=== PATIENT | female | born 2000 | race Caucasian/White ===

== ENCOUNTER 2023-04-23 02:45 | Emergency (ER) | payer OTHER, SELFPAY ==
[2023-04-23] VITALS (13 sets, daily range): BP systolic 149–166; BP diastolic 91–106; PULSE 84–108; RESP 15–27; TEMP 36.7; O2SAT 98–99; BMI 26.6
--- NOTE | 2023-04-23 02:55 | ECG_ITS ---
[facility] Test Date: 2023-04-23 Pat Name: TITI ELAM Department: Room: - Gender: Female Care Team Coordinator Scheduler: : 2000 Requested By: SUJATHA GRISSOM Order Number: [id number] Reading MD: SUJATHA GRISSOM Measurements Intervals [place] Rate: 88 P: 48 ME: 126 QRS: 41 QRSD: 80 T: 21 QT: 340 QTc: 386 Interpretive Statements 1100 Sinus rhythm Non-Specific T wave inversion in III 9110 normal ECG No previous ECG available for comparison Electronically Signed On 04-28-2023 6:41:21 EST by SUJATHA GRISSOM
--- NOTE | 2023-04-23 03:08 | ED_ITS ---
HPI - Seizure General Chief Complaint: Seizure Stated Complaint: seizures Time Seen by Provider: 04/23/23 02:58 Source: patient Mode of arrival: walk-in Limitations: no limitations History of Present Illness HPI Narrative: patient states she has a seizure disorder. States diagnosed as nonepileptic type seizure. Has been on lamictal . States she did not like the side effects of fatigue with the medication. States her doctor decrease the dose from 100mg to 25mg. Complains of increased stress at work. 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 States several people have quit including the doctor and now they have a virtual doctor at the clinic and many complaints from patients. Believes she had a seizure yesterday and another one this AM. States her arms feel tingly now and this is not normal for her after a seizure. States earlier her vision was blurred but this has resolved. No headache, dizziness or difficulty walking Related Data Home Medications Medication Instructions Recorded Confirmed lamotrigine 25 mg tablet mg 04/23/23 Allergies Allergy/AdvReac Type Severity Reaction Status Date / Time hydrocortisone Allergy Verified 04/23/23 02:55 Review of Systems ROS Status of ROS 10 or more systems reviewed and unremark able except as noted in history and below PFSH PFS Social History Smoking status: Never smoker Exam Constitutional Vital Signs, click to edit/add: Last Vital Signs Temp 98.1 F 04/23/23 02:49 Pulse 90 04/23/23 03:20 Resp 19 04/23/23 03:20 BP 149/91 H 04/23/23 03:01 Pulse Ox 99 04/23/23 03:20 O2 Del Method Room Air 04/23/23 02:49 Common normals: no apparent distress, average body habitus, oriented x3, no limitations, healthy appearing, alert and well nourished Eye Common normals: PERRL, EOMs intact bilaterally and conjunctivae normal Respiratory Common normals: normal respiratory effort, no retractions, no use of accessory muscles and clear to auscultation bilaterally Cardio Common normals: regular rate, regular rhythm, S1 normal heart sound and S2 normal heart sound GI Common normals: Normal to inspection, nondistended, normoactive bowel sounds present, soft to palpation and non-tender Extremity Common normals: normal to inspection and full ROM Neuro Common normals: oriented x3, CN's II-XII intact bilaterally, moves all extremities and no focal motor deficits Psych Appearance: grossly normal Course Vital Signs Vital signs: Vital Signs Temperature 98.1 F 04/23/23 02:49 Pulse Rate 88 04/23/23 02:49 Respiratory Rate 18 04/23/23 02:49 Blood Pressure 166/100 H 04/23/23 02:49 Pulse Oximetry 98 04/23/23 02:49 Oxygen Delivery Method Room Air 04/23/23 02:49 Temperature 98.1 F 04/23/23 02:49 Pulse Rate 90 04/23/23 03:20 Respiratory Rate 19 04/23/23 03:20 Blood Pressure 149/91 H 04/23/23 03:01 Pulse Oximetry 99 04/23/23 03:20 Oxygen Delivery Method Room Air 04/23/23 02:49 MDM - Seizure MDM Narrative Medical decision making narrative: patient with history of nonepileptic seizures. Was on higher dose of lamictal that was decreased as she complained of fatigue. Is now on lamictal 25. Presented this AM after a seizure complaining of tingling of her arms and blurred vision that resolved. labs unremarkable except for hypokalemia . physical exam normal. Patient discharged home and advised to follow up with her doctor to discuss treatment of her illness Lab Data Labs: Lab Results 04/23/23 Range/Units 03:25 WBC 10.0 (4.0-11.0) 10^3/uL RBC 4.95 (4.20-5.40) 10^6/uL Hgb 14.1 (12.0-16.0) g/dL Hct 42.1 (36.0-48.0) % MCV 85.1 (81.0-99.0) fL MCH 28.5 (26.7-34.0) pg MCHC 33.5 (29.9-35.2) g/dL RDW 12.9 (11.0-15.0) % Plt Count 292 (150-450) 10^3/uL MPV 9.5 (9.5-13.5) fL Neut % (Auto) 55.1 (43.0-75.0) % Lymph % (Auto) 35.6 (20.5-60.0) % [place] % (Auto) 7.3 (1.7-12.0) % Eos % (Auto) 1.2 (0.9-7.0) % Baso % (Auto) 0.5 (0.2-2.0) % Neut # (Auto) 5.5 (1.4-6.5) 10^3/uL Lymph # (Auto) 3.6 (1.2-3.8) 10^3/uL [place] # (Auto) 0.7 (0.3-0.8) 10^3/uL Eos # (Auto) 0.1 (0.0-0.7) 10^3/uL Baso # (Auto) 0.1 (0.0-0.1) 10^3/uL Abs Immat Gran (auto) 0.03 (0.00-0.03) 10^3/uL Imm/Tot Granulo (auto) 0.3 (0.0-0.5) % Sodium 133 L (136-145) mmol/L Potassium 3.1 L (3.5-5.1) mmol/L Chloride 101 (98-107) mmol/L Carbon Dioxide 24.3 (21.0-32.0) mmol/L Anion Gap 10.8 BUN 9.0 (7.0-18.0) mg/dL Creatinine 0.89 (0.55-1.02) mg/dL Est GFR ( Amer) >60 (>=60) Est GFR (Non-Af Amer) >60 (>=60) BUN/Creatinine Ratio 10.1 Glucose 116 H (74-106) mg/dL Calcium 9.0 (8.5-10.1) mg/dL Magnesium 2.0 (1.8-2.4) mg/dL Total Bilirubin 0.2 (0.2-1.0) mg/dL AST 9 L (15-37) U/L ALT 20 (14-59) U/L Alkaline Phosphatase 66 (46-116) U/L Total Protein 7.6 (6.4-8.2) g/dL Albumin 4.0 (3.4-5.0) g/dL Globulin 3.6 g/dL Albumin/Globulin Ratio 1.1 Urine Opiates Screen Negative (NEGATIVE) Ur Buprenorphine Scrn Negative (NEGATIVE) Ur Oxycodone Screen Negative (NEGATIVE) Urine Methadone Screen Negative (NEGATIVE) Ur Barbiturates Screen Negative (NEGATIVE) U Tricyclic Antidepress Negative (NEGATIVE) Ur Phencyclidine Scrn Negative (NEGATIVE) Ur Amphetamines Screen Negative (NEGATIVE) U Methamphetamines Scrn Negative (NEGATIVE) U Benzodiazepines Scrn Negative (NEGATIVE) Urine Cocaine Screen Negative (NEGATIVE) U Cannabinoids Screen Negative (NEGATIVE) Discharge Plan Discharge Chief Complaint: Seizure Clinical Impression: Nonepileptic episode, Hypokalemia Prescriptions / Home Meds: No Action lamotrigine 25 mg tablet Instructions: Hypokalemia (ED), Nonepileptic Seizures (DC) Additional Instructions: follow up with your doctor for recheck Referrals: Physician,Non-Staff, MD [Primary Care Provider] - 1 week
[2023-04-23 03:43] LABS: Basophils Absolute Auto 0.1 10^3/uL (0.0-0.1); Basophils Percent Auto 0.5 % (0.2-2.0); Eosinophils Absolute Auto 0.1 10^3/uL (0.0-0.7); Eosinophils Percent Auto 1.2 % (0.9-7.0); Hematocrit 42.1 % (36.0-48.0); Hemoglobin 14.1 g/dL (12.0-16.0); Immature Granulocytes Abs Auto 0.03 10^3/uL (0.00-0.03); Immature Granulocytes Pct Auto 0.3 % (0.0-0.5); Lymphocytes Absolute Auto 3.6 10^3/uL (1.2-3.8); Lymphocytes Percent Auto 35.6 % (20.5-60.0); Mean Corpuscular HGB Conc 33.5 g/dL (29.9-35.2); Mean Corpuscular Hemoglobin 28.5 pg (26.7-34.0); Mean Corpuscular Volume 85.1 fL (81.0-99.0); Mean Platelet Volume 9.5 fL (9.5-13.5); Monocytes Absolute Auto 0.7 10^3/uL (0.3-0.8); Monocytes Percent Auto 7.3 % (1.7-12.0); Neutrophils Absolute Auto 5.5 10^3/uL (1.4-6.5); Neutrophils Percent Auto 55.1 % (43.0-75.0); Platelet Count 292 10^3/uL (150-450); Red Blood Count 4.95 10^6/uL (4.20-5.40); Red Cell Distribution Width 12.9 % (11.0-15.0)
[2023-04-23 03:57] LABS: Alanine Aminotransferase 20 U/L (14-59); Albumin Globulin Ratio 1.1; Alkaline Phosphatase 66 U/L (46-116); Anion Gap 10.8; Aspartate Amino Transferase 9 U/L (15-37); BUN Creatinine Ratio 10.1; Bilirubin Total 0.2 mg/dL (0.2-1.0); Carbon Dioxide 24.3 mmol/L (21.0-32.0); Chloride 101 mmol/L (98-107); Estimated GFR (African America >60 (>=60); Estimated GFR (Non-African Ame >60 (>=60); Globulin 3.6 g/dL; Glucose 116 mg/dL (74-106); Potassium 3.1 mmol/L (3.5-5.1); Sodium 133 mmol/L (136-145); Total Protein 7.6 g/dL (6.4-8.2)
[2023-04-23 03:59] LABS: Amphetamine Screen Urine NEGATIVE (NEGATIVE); Barbiturates Screen Urine NEGATIVE (NEGATIVE); Benzodiazepines Screen Urine NEGATIVE (NEGATIVE); Buprenorphine Screen Urine NEGATIVE (NEGATIVE); Cannabinoid Screen Urine NEGATIVE (NEGATIVE); Cocaine Screen Urine NEGATIVE (NEGATIVE); Methadone Screen Urine NEGATIVE (NEGATIVE); Methamphetamines Screen Urine NEGATIVE (NEGATIVE); Opiate Screen Urine NEGATIVE (NEGATIVE); Oxycodone Screen Urine NEGATIVE (NEGATIVE); Phencyclidine Screen Urine NEGATIVE (NEGATIVE); Tricyclic Antidepressant Urine NEGATIVE (NEGATIVE)
[2023-04-23] MEDS: POTASSIUM CHLORIDE 10 MEQ ER TABLET 40 MEQ PO (04:41)
== END 2023-04-23 04:48 | disposition home or self-care (01) ==
PROVIDERS: Emergency Provider Internal Medicine; PCP Family Medicine
DX: R56.9 Unspecified convulsions (principal); E87.6 Hypokalemia; Z79.899 Other long term (current) drug therapy
CPT/HCPCS: 36415; 80053; 80307; 83735; 85025; 93005; 99284

== ENCOUNTER 2023-04-25 02:25 | Emergency (ER) | payer OTHER, SELFPAY ==
[2023-04-25 02:28] VITALS: BP 133/86; PULSE 97; RESP 16; TEMP 36.6; O2SAT 99; BMI 26.6
[2023-04-25 02:39] VITALS: RESP 16
--- OUTSIDE RECORDS SUMMARY | 2023-04-25 02:58 | XMS_ITS | CCD ---
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 Name Role Phone RenFabio Unavailable Unavailable RenFabio Unavailable Unavailable KUNS, RENETTA~[phone] UNKNOWN Unavailable Unavail able NO FAMILY PHYSICIAN, 837 Unavailable Unavail able BOLIVAR CHAIREZ Unavailable Unavailable PILAR TORRE Unavailable Unavailable HAY, KATIE Unavailable Unavailable HAY, KATIE Unavailable Unavailable KUNS, REENTTA Unavailable Unavailable Kuns, Renetta Unavailable Hank Gomez Unavailable Allergies Allergy Classification Reported Allergen(s) Allergy Type Date of Onset Reaction(s) Facility (1 source) hydrOXYzine Drug Allergy [facility] Repository (7 sources) hydrOXYzine Drug Allergy rash [facility] [place] Other (7 sources) Meclizine Drug Allergy difficulty sleeping , nausea , headache [facility] [place] Other Medications Current Medications Medication Drug Class(es) Dates Sig (Normalized) Sig (Original) [id number] 200 actuat albuterol 0.09 mg/actuat metered dose inhaler (14 sources) beta2-Adrenergic Agonist Start: 02-15-2022 take 2 puff(s) by inhalation every four hours as needed Albuterol Sulfate HFA 108 (90 Base) MCG/ACT 2 puffs Inhalation every 4 hrs as needed Feb, Active Start: 02-15-2022 take 2 puff(s) by in halation every four hours as needed Albuterol Sulfate HFA 108 (90 Base) MCG/ACT 2 puffs Inhalation every 4 hrs as needed Feb, Active Start: 09-24-2017 take 2 puff(s) by in halation every four hours as needed ProAir HFA 108 (90 Base) MCG/ACT 2 puffs as needed Inhalation every 4 hrs PRN Sep, Active Albuterol Sulfat e (2.5 MG/3ML) 0.083% 3 ml Inhalation Three times a day PRN Active amoxicillin 875 mg oral tablet (1 source) Penicillin-class Antibacterial Start: 11-04-2021 take 1 tablet by mouth every twelve hours Amoxicillin 875 MG 1 tablet Orally Twice a day for 10 day(s) Oct, Active cefdinir 300 mg oral capsule (5 sources) Cephalosporin Antibacterial Start: 11-06-2021 take 1 capsule by mouth every twelve hours Cefdinir 300 MG 1 tablet Orally Twice a day for 10 days Oct, Active citalopram 10 mg oral tablet (7 sources) Serotonin Reuptake Inhibitor Start: 02-29-2020 take 1 tablet by mouth every twenty-four hours Citalopram Hydrobromide 10 MG 1 tablet Orally Once a day Feb, Active DULoxetine 20 mg delayed release oral capsule (7 sources) Serotonin and Norepinephrine Reuptake Inhibitor take 1 capsule by mouth every twelve hours DULoxetine HCl 20 MG 1 capsule Orally Twice a day Active etonogestrel 68 mg drug implant (7 sources) Progestin Nexplanon 68 MG as directed Subcutaneous Active lamoTRIgine (7 sources) Mood Stabilizer, Anti-epileptic Agent lamoTRIgine Active mupirocin 0.02 mg/mg topical ointment (1 source) RNA Synthetase Inhibitor Antibacterial Start: 08-23-2022 Mupirocin 2 % 1 application to affected area Externally Three times a day for 7 days August, Active ondansetron 4 mg oral tablet (6 sources) Serotonin-3 Receptor Antagonist Start: 11-06-2021 take 1 tablet by mouth every six hours as needed for nausea Ondansetron HCl 4 MG 1 tablet Orally Every six hours as needed for nausea Oct, Active Problems Active Problems Problem Classification Problem Date Documented Da te Episodic/Chronic Allergic reactions (7 sources) Allergy to peanut; Translations: [Allergy to peanuts] Episodic Anxiety disorders (14 sources) Panic disorder; Translations: [Panic disorder [episodic paroxysmal anxiety]] Chronic Asthma (10 sources) Unspecified asthma, uncomplicated; Translations: [Asthma] Onset: 11-11-2017 Chronic Conditions associated with dizziness or vertigo (14 sources) Labyrinthitis; Translations: [Labyrinthitis, unspecified ear] Episodic Epilepsy; convulsions (1 source) Other seizures; Translations: [OTHER SEIZURES] Onset: 11-11-2017 Chronic Epilepsy; convulsions (10 sources) Unspecified convulsions; Translations: [Seizure] Onset: 11-09-2017 Episodic Headache; including migraine (7 sources) Headache; Translations: [Headache] Episodic Nausea and vomiting (7 sources) Nausea; Translations: [Nausea] Episodic Superficial injury; contusion (1 source) Abrasion, left knee, initial encounter Episodic Syncope (14 sources) Syncope and collapse; Translations: [Syncope and collapse] Episodic Viral infection (7 sources) Verruca plantaris; Translations: [Plantar wart] Episodic Past or Other Problems Problem Classification Problem Date Documented Date Episodic/Chronic Other upper respiratory infections (1 source) Streptococcal pharyngitis Onset: 11-06-2021 Resolved: 11-06-2021 Episodic Unclassified (1 source) Acute cough R05.1 Results Test Name Value Interpretation Reference Range Facility COVID + FLU Quick Testingon 02-12-2022 SARS-CoV-2 (COVID-19) RNA ANA+probe Ql (Unsp spec) Negative [facility] [place] Other COVID + FLU Quick Testing Negative [facility] [place] Other CT head/brain wo conon 10-15 CT head/brain wo con [facility] [place] [address] CT Scan Report Signed Patient: Liliana Chavez MR#: [id number] 26 : 2000 Acct:[id number] Age/Sex: 19 / F ADM Date: 10/15/20 Loc: ER Room: Type: [facility] ER Attending Dr: Ordering Provider: Radha Khan APRN Date of Service: 10/15/20 CT/CT head/brain wo con: injury Copies to: Radha Khan APRN CT BRAIN WITHOUT CONTRAST: CLINICAL HISTORY: Seizure 4 days ago. Patient hit head. Nausea today. COMPARISON: 10/15/2017 TECHNIQUE: Contiguous axial unenhanced images were obtained through the brain. This CT exam was performed using one or more following dose reduction techniques: Automated exposure control, adjustment of the mA and/or kV according to patient size, or use of iterative reconstruction technique. FINDINGS: The ventricles are normal in size and position. There are no areas of abnormal attenuation. There is no hemorrhage, mass effect or extra-axial collections. The imaged paranasal sinuses are clear. And the calvarium is intact. CT/CT head/brain wo con IMPRESSION: NO ACUTE INTRACRANIAL ABNORMALITY. Impression dictated by: Sarah Eastman M.D.10/15/2020 2:11 PM Dictation Location: [place] [address] Transcribed By: JAYLAN 10/15/20 1411 Dictated By: Sarah Eastman MD 10/15/20 1409 Signed By: 10/15/[address] [facility] Daily Progress Note - Peds-E pilepsyon 02-14-2019 Daily Progress Note - Peds-Epilepsy Service: Service: Epilepsy Subjective Data: ID Statement: LILIANA CHAVEZ is a 18 year old Female who is Hospital Day # 2. Additional Information: Overnight Events: Patient had an uneventful night. Additional Information: Was given benadryl once for leads itching, with improvement. Nutrition: Diet: Diet Order: Diet -PEDS Regular No food allergies 02/13/2019 10:28 Objective Data: Objective Information: T PRBPSpO2 [id number]/6298% Date/Time02/14 7: 7: 7: 7: 7:39 Range(36.7C - 36.7C ) (53 - 72 ) (16 - 20 ) (105 - 105 )/ (62 - 62 ) (98% - 98% ) Physical Exam: Constitutional: Cooperative, lying in bed with mother at bedside, in no acute distress Eyes: EOMI, PERRL, anicteric sclera, no discharge ENMT: No nasal discharge or congestion, no oral lesions, MMM Head/Neck: Normocephalic, atraumatic Respiratory/Thorax: Breathing comfortably, CTA b/l Cardiovascular: RRR, S1 and S2, WWP, cap refill < 2sec, radial pulses 2+ Gastrointestinal: Soft nontender non-distended Musculoskeletal: No edema, warmth or erythema of joints Neurological: Mental Status: A&Ox3. Normal attention and concentration. Fluent spontaneous speech with no errors. Cranial Nerves: II: Visual forbes full to confrontation bilaterally. III, IV, : Extraocular movements intact with no nystagmus. Pupils equal, round and reactive to light. V: Sensation intact in all three distributions of trigeminal nerve. VII: Face symmetric. VIII: Hearing intact to finger rub bilaterally. IX, X: Palate elevates symmetrically. XII: Tongue protrudes midline. Motor: Strength 5/5 throughout. Normal bulk and tone. DTR: 1/4 b/l biceps, patellar, achilles Sensory: Intact. Coordination: Finger to nose and rapid serial opposition performed without evidence of dysmetria or dysdiadochokinesis. Psychological: appropriate for age Skin: Warm and dry, no rashes or bruising Medications: Medications: Continuous Medications --------- No continuous medications are active Scheduled Medications --------- 1. Multivitamin - PEDS: 1 tablet(s) Oral Daily PRN Medications --------- 1. Albuterol 90 micrograms/ Inhalation MDI - PEDS: 2 inhalation Inhalation Every 4 Hours 2. 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 Past EEG's have not shown epileptic activity so her episodes are non-epileptic events, likely related to anxiety/stress as the episodes have significantly decreased recently after grandmother's passing. She has not had an episode in several months where she has seemed to become unresponsive/lose consciousness so she can be cleared for driving if EEG overnight is negative. Overnight EEG was negative so patient will be discharged home today. #PNES - 24hr vEEG --> normal - seizure precautions - rescue klonopin 2mg if seizure > 5mins --> will not send home with any rescue - encourage follow up with psychiatrist/counselor JAVIERI - regular diet Maricruz Newton MD Pediatrics, PGY1 Doc [place] Signature/Cosignature/A ttestation: Note Completion: Attending AttestationI saw and evaluated the patient. I personally obtained the gauthier and critical portions of the history and physical exam or was physically present for gauthier and critical portions performed by the resident/fellow. I reviewed the resident/fellows documentation and discussed the patient with the resident/fellow. I agree with the resident/fellows medical decision making as documented in the residents note I personally evaluated the patient [id number] Comments/ Additional Findings Greater than 30 minutes spent discharging this patient. EEG normal. NO paroxysmal events recorded. Pt is cleared for driving as she has not had a seizure or episode of LOC in > 6 months. However did advise she establish with psychiatry and or a counselor for suspected panic attacks. Discussed that would be cautious driving with untreated anxiety. Advised her to discuss anxiolytic with PCP (SSRI v SNRI) pt to follow up as needed Electronic Signatures: Maricruz Newton ( (Resident)) (Signed 14-Feb-2019 12:07) Authored: Service, Subjective Data, Nutrition, Objective Data, Assessment/Plan, Signature/Cosignature/A ttestation Kaitlin Sampson (DO) (Signed 14-Feb-2019 21:18) Authored: Signature/Cosignature/A ttestation Co-Signer: Service, Subjective Data, Nutrition, Objective Data, Assessment/Plan, Signature/Cosignature/A ttestation Last Updated: 14-Feb-2019 21:18 by Kaitlin Sampson () Normal [facility] Discharge [id number] Discharge Profile2 Discharge Orders: Anticipated Discharge Date: Anticipated Discharge [id number] Problem List: Admitting Dx: Psychogenic nonepileptic seizure: Onset Date: 12-Feb-2019, Catalog Name: Conversion disorder with seizures or convulsions Hospital Providers: Provider RoleProvider Name AttendingKaitlin Sampson Activity: activity as tolerated. May shower. May return to school/work Instructions: 02/15/2019. Diet: Dietresume normal diet Additional Orders: Additional Instructions Thank you for entrusting us with Liliana's care during this hospitalization. As discussed, her EEG was normal. As a reminder, here are some precautions that we encourage anyone with seizures to follow: General Seizure Precautions: - No scuba or charan diving - No climbing trees or jumping fences - No driving until cleared by your neurologist - Always wear helmet when on a bike or in-line skates, skateboards, skis and snowboards - Always wear a life jacket when on a boat - Avoid the trampoline for now - Avoid swimming for now, unless your child can be supervised at all times and is in shallow ortega - Showering with door unlocked and someone at home Call Provider If (Homegoing Patients): Fever of 100.4 F (38 C) or higher. Chills. Acting very sleepy and difficult to awaken. Vomiting (throwing up) and not able to eat or drink for 12 hours. 3 or more loose, watery bowel movements in 24 hours (diarrhea). Any new concerning symptoms. Provider FINAL REVIEW of Orders: Final Review: Final Review of Medication Reconciliation and Orders Completedby Physician Reviewing ProviderAnna MD Lamar (Resident) at 14-Feb-2019 11:52:50 Electronic Signatures: Maricruz Newton ( (Resident)) (Signed 14-Feb-2019 11:52) Authored: Discharge Orders, Asthma Home Management Plan (HMP), Provider FINAL REVIEW of Orders, Gold Form - Siebel Administrator Summary Last Updated: 14-Feb-2019 11:52 by Maricruz Newton ( (Resident)) Normal [facility] Admission Risk Screen - Pedi atricon 02-13-2019 Admission Risk Screen - Pediatric Admission Screens: Patient Verification: New W ID Band Applied in my Departmentyes Patient Identity Verified Byparent/legal guardian ID Band FULL Name, include Middle, spelling matches patient's ID used for verificationyes ID Band Matches Patient ID used for Verficationyes ID Band MRN Matches EMR MRNyes Advance Directive: Advance Directive/DNRno Humpty Dumpty Risk Assessment: Humpty Dumpty Risk Assessment: Humpty: Age(1) 13 years and above Humpty: Gender(1) female Humpty: Diagnosis(4) neurological diagnosis Humpty: Cognitive Impairments(1) oriented to own ability Humpty: Environmental Factors(4) history of falls or infant-toddler placed in bed Humpty: Response to Surgery/ Sedation/ Anesthesia(1) more than 48 hours/none Humpty: Medication Usage(1) other medications Humpty: ScoreImage has been removed. 13 Falls Precautions per Humpty Dumpty Screening ToolHIGH RISK falls safety precautions necessary (score 12+) Humpty Dumpty Educationteaching provided Teaching ProvidedPI 729 Humpty Dumpty Falls Prevention Program For Inpatient use ONLY Family Violence Screen (Patient < 8 yo, screen parent only. Patient 8 yo and older, screen both parent and child.): Do you feel UNSAFE going back to the place where you liveno Clinician Assessment: Are there any apparent signs of injuries/behaviors that could be related to abuse/neglectno Ask parent or guardian: Are there times when you, your child(keshia), or any member of your household feel unsafe, harmed, or threatened around persons with whom you know or liveno Have you had any thoughts of harming anyone elseno Social Service Consult for abuse/neglect needed this visitno SBIRT: Does this patient present with an injuryno Functional Screen: Functional Screen: In the recent/past 2-4 weeks, patient or family have noticedno issues that require a rehabilitation consult at this time Learning Assessment (Patient): Patient is Able to be Assessed for Learningyes Educational [id number] grade Factors Influence Readiness to Learnnone, ready to learn Factors Impact Ability to Learnnone Devices/Methods Used to Communicateglasses Learning Preferencesaudio, individual instruction, skill demonstration, verbal instruction, video, written material Cultural Considerationsnone Developmental Considerationsnone Scientologist Considerationsnone Other Learnersmother Learning Assessment (Other Learner): Other learner availableyes Other Learner is Able to be Assessed for Learningyes Learnermother Factors Influencing Readiness to Learnnone, ready to learn Factors that Impact Ability to Learnnone Devices/Methods Used to Communicatenone Learning Preferencesaudio, individual instruction, skill demonstration, verbal instruction, video, written material Cultural Considerationsnone Developmental Considerationsnone Scientologist Considerationsnone Nutrition Risk Screen: Nutrition Screen forpediatric patient Nutrition Risk Screen (2 or more indicators, Order Nutrition Consult)no indicators present Nutrition Consult needed this visitno Can Patient Participate in Room Serviceyes Pain Screen: Pain Scalenumerical 0-10 Pain Scale Educationteaching provided Current Pain Level2 = Mild Acceptable Pain Level2 = Mild (1) Expression of Pain (nonverbal)verbalizatio n Lifestyle Changes/Adaptations in Response to Paindecreased activity level Barriers to Reporting Painnone Chronic Painno Chronic Pain Commenthas abdominal cramping during some of monthly periods. Video/Poke Procedure Plan: Has the Pain Evaluation and Management Video been viewed within the past 3 months: no Has the Poke and Procedure Plan been completed: N/A Pressure Injury Present on Admissionno Spiritual Screen: Are there any cultural, spiritual, sabianism practices/values/needs that are important for us to knowno Do you want a visit/item from Pastoral Careno Would you like your Chemical Processing Equipment Repairer/Antenna Rigger notifiedno [place] Suicide Peds: Screen patients 10 yo and older, or any patient presenting with a mental health issue Risk Screen Not Applicable/Able to Answerable to be screened In the Past Month: Have you wished you were or could go to sleep and not wake upno In the Past Month: Have you had any actual thoughts of killing yourselfno Lifetime: Have you ever done, started to do, or prepared to do anything to end your lifeno [place] Suicide Risknone Optional Screens: Significant Indicatiors: Significant Indicators: Complete Electronic Signatures: Yanet Powell (ARTURO) (Signed 13-Feb-2019 10:25) Authored: Admission Screens, Optional Screens Last Updated: 13-Feb-2019 10:25 by Yanet Powell (ARTURO) References: 1. Data Referenced From 3. Plan of Care 13-Feb-2019 09:51 Normal [facility] Discharge Planning Noteon Discharge Planning Note Discharge Needs Assessment: Discharge Planning Assessment [id number] Discharge Planning Assessment Completed byMiladys JENNINGSlinux systems analyst Information: Reason for Admission as Stated by Patient/Parent/Caregive rVEEG monitoring Primary Caregivermother, father Lives Withmother Patient Learning - Peds: Factors Impact Ability to Learnnone Other Learner - Peds: Learnerfamily Discharge Needs: Services Anticipated at Dischargenone Anticipated Discharge Dispositionhome Anticipated Discharge Facility/Level of Care NeedsHome Discharge Planning: Planned Disposition: home Final Disposition/Discharge: Disposition/Discharge Information: Discharge/Transfer Information: Discharge/Transfer Date/[id number] 14:44 Discharged Accompanied Byparent Discharge Modeambulatory Transportation Methodprivate car Final DispositionHome Electronic Signatures: Miladys Poole (RN) (Signed 13-Feb-2019 09:13) Authored: Discharge Planning Note Linnea Conway (MICHAELA) (Signed 14-Feb-2019 15:33) Authored: Discharge Planning Note, Final Disposition/Discharge Last Updated: 14-Feb-2019 15:33 by Linnea Conway (MICHAELA) Normal [facility] History and Physical - Pedso n 02-13-2019 History and Physical - Peds History of Present Illness: /Lactating: Are You no (1) Are You Currently Breastfeedingno (1) History of Present Illness: HPI: 18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 These episodes started 4 year ago with eyes widening and legs go numbing so that she falls to the ground. 1.5years ago those symptoms started but were followed by arms and fingers flexing, then arms twitching and then eyes close. Mom says it's as if she has passed out. These last for 1-2 minutes, sometimes she can be snapped out of it, she does not talk during it and she is unaware of the event happening. Afterwards she is lethargic. Sometimes they occur as a cluster. No associated triggers that they can recall. Before it occurs Liliana sometimes says that she can feel it because she doesn't feel right but can't describe it further. They used to occur several times a day (up to 7) but since grandmother passed 3 months ago they have decreased. Mom thinks the grandma's health (Parkinson's, dementia) was a source of anxiety for Liliana. The last episode was atypical of her episodes, it occured 2 weeks ago. She became dizzy and sweaty at school, it resolved within a few minutes and Liliana thinks it could have been a panic attack. Before that it occurred 3 months ago. Mom thinks graduating this year may also be an underlying source of anxiety for Liliana. She has never had a true seizure. Prior EEGs were normal, or captured non-epileptic events. When talked to alone, Liliana does not think she has anxiety and can't pinpoint anything specific that she is worried about. She does not like living in her grandfather's house because she feels limited in terms on independence and it doesn't feel like her space. She feels safe at home and at school. She states that school is going well, getting along with friends, denies bullying, She thinks school is boring right now because she is only taking two classes. She plans on graduating in March and then wants to be a dental hygienist. She is not in a current relationship, not sexually active, denies drugs and alcohol use. She denies feeling sad/depressed, thoughts of hurting herself or others but states she thought about hurting herself many years ago after her parents . She has tried counseling before but did not have good experiences. 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 She does not like seeing counselors. Mom did reach out to [facility] after Dr. Sampson's recommendation but they have not heard back yet. LMP: now, regular (will sometimes be late due to stress) ROS: negative except for above hx: ex-36weeker required O2 for 12hrs and phototherapy, no other complications with or delivery mhx: asthma surgical hx: T&A allergies: hydroxyzine, seasonal meds: albuterol nebulizer and inhaler social: lives upstairs with sister and mom in grandfather's house, 12th grade, honor roll Primary Care Provider: Primary Care Provider: Provider RoleProvider Name Megan Renetta Corrigan Allergies: Allergies: hydrOXYzine: Rash Medications Prior to Admission: Outpatient Meds have not been reviewed. Review of Systems: Constitutional: NEGATIVE: Fever, Weight Loss Eyes: NEGATIVE: Vision Loss/ Change Respiratory: NEGATIVE: Shortness of Breath Cardiac: NEGATIVE: Chest Pain, Syncope Gastrointestinal: NEGATIVE: Vomiting Musculoskeletal: NEGATIVE: Pain, Weakness Neurological: NEGATIVE: Headache, Seizures Psychiatric: POSITIVE: Anxiety Skin: NEGATIVE: Pain, Rash All Other Systems: All other systems reviewed and are negative Objective: Objective Information: T PRBPSpO2 [id number]/6496% Date/Time02/13 9: 16: 16: 9: 9:27 Range(36.2C - 36.2C ) (60 - 91 ) (20 - 20 ) (122 - 122 )/ (64 - 64 ) (96% - 96% ) Physical Exam: Constitutional: appears well, sitting in bed, NAD Eyes: EOMI, PERRL, anicteric sclera, no discharge ENMT: no nasal discharge or congestion, no oral lesions, MMM Head/Neck: normocephalic, atraumatic Respiratory/Thorax: breathing comfortably, CTA b/l Cardiovascular: RRR, S1 and S2, WWP, cap refill < 2sec, radial pulses 2+ Gastrointestinal: soft nontender non-distended Musculoskeletal: no edema, warmth or erythema of joints Neurological: Mental Status: A&Ox3. Normal attention and concentration. Fluent spontaneous speech with no errors. Cranial Nerves: II: Visual forbes full to confrontation bilaterally. III, IV, : Extraocular movements intact with no nystagmus. Pupils equal, round and reactive to light. V: Sensation intact in all three distributions of trigeminal nerve. VII: Face symmetric. VIII: Hearing intact to finger rub bilaterally. IX, X: Palate elevates symmetrically. XII: Tongue protrudes midline. Motor: Strength 5/5 throughout. Normal bulk and tone. DTR: 1/4 b/l biceps, patellar, achilles Sensory: Intact. Coordination: Finger to nose and rapid serial opposition performed without evidence of dysmetria or dysdiadochokinesis. 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 Past EEG's have not shown epileptic activity so her episodes are non-epileptic events, likely related to anxiety/stress as the episodes have significantly decreased recently after grandmother's passing. She has not had an episode in several months where she has seemed to become unresponsive/lose consciousness so she can be cleared for driving if EEG overnight is negative. #PNES - 24hr vEEG - seizure precautions - rescue klonopin 2mg if seizure > 5mins - encourage follow up with psychiatrist/counselor JAVIERI - regular diet Stella Guerin MD Pediatrics, PGY1 Doc [facility] Signatures/Attestation/ Certification: Note Completion: Admission Order - View OnlyCurrent Admission Order. [place] [facility] [place] Admitting Diagnosis, F41.9 Anxiety;F44.5 Psychogenic nonepileptic seizure Transfer to, [facility]: [facility] Level of Care, Med/Surg Admitting Service : Epilepsy Yi Montesinos Attending AttestationI saw and evaluated the patient. I personally obtained the gauthier and critical portions of the history and physical exam or was physically present for gauthier and critical portions performed by the resident/fellow. I reviewed the resident/fellows documentation and discussed the patient with the resident/fellow. I agree with the resident/fellows medical decision making as documented in the residents note I personally evaluated the patient [id number] Comments/ Additional Findings Liliana is an 18 yo girl with paroxysmal episodes which were reportedly captures on ambulatory EEG and reported as PNES. He has a prior normal vEEG at [facility] without events recorded. She was seen in clinic and is requesting driving clearance. She has not had typical PNES spells in > 6 months, noting those involve paresthesias of her LE, cramping of her hands ( carpopedal spasm) and reported LOC with falling to the ground. 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 She also reported a suspected panic attack at school 2 weeks ago. She denies falls or LOC with these recent episodes. admitted to screen for missed seiures and interictal changes for driving clearance. plan as above Attending Provider Inpatient Certification StatementI certify this patients need for inpatient care based on the above documentation including; the order to admit as inpatient, the anticipated length of stay, diagnosis, problem list and plan of care, and discharge plan. Electronic Signatures: Stella Guerin (Resident)) (Signed 13-Feb-2019 17:03) Authored: History of Present Illness, Primary Care Provider, Allergies, Medications Prior to Admission, Objective, Assessment/Plan, Signatures/Attestation/ Certification Kaitlin Sampson (DO) (Signed 14-Feb-2019 21:09) Authored: Review of Systems, Assessment/Plan, Signatures/Attestation/ Certification Co-Signer: History of Present Illness, Primary Care Provider, Allergies, Medications Prior to Admission, Objective, Assessment/Plan, Signatures/Attestation/ Certification Last Updated: 14-Feb-2019 21:09 by Kaitlin Sampson () References: 1. Data Referenced From Patient Profile - Pediatric v2 13-Feb-2019 09:51 Normal [facility] Measurementson 02-13-2019 Measurements Weight: Med Calc Weight (kg)63.8 kilogram(s) Electronic Signatures: Kaykay Cueva ( (Resident)) (Signed 13-Feb-2019 11:48) Authored: Weight Last Updated: 13-Feb-2019 11:48 by Kaykay Cueva ( (Resident)) Normal [facility] Patient Profile - Pediatric v2on 02-13-2019 Patient Profile - Pediatric v2 Profile: Initial Info: How to be AddressedCora(1) Parent NameJennifer(1) Spoken Language PreferredEnglish (1) Legal CustodianJennifer Scott Are you currently using the Personal Electronic Health Record or MYUHCAREno Are you interested in learning more about MYUHCARE for the management of your healthnot at this time Stated Reason for AdmissionVEEG Court Ordered Visitationno Wants Family/Rep Notified of Admissionn/a; family present Notify PCPnotify PCP Informed of Patient Vis[place] Patient Belongingsremains with patient Patient Belongings Remaining with Patientcell phone/electronics; clothing Medications Brought to Hospitalno General Health: Pediatric Weight (kg)63.75 kilogram(s)(2) Weight Methodactual (measured) Scale Typestanding Pediatric Height / Length (cm)156 centimeter(s)(2) Height Methodheight measured BMI (kg/m2)26.195 square meter Rsp Based Care: How would you (parents/caregivers) like to participate in the care of your childhelp when needed, remain at bedside What is the number one concern for you/your child during this hospitalization safety What is the most important thing we can do to support you and your child during this hospitalizationkeep us safe and informed Is there anything we need to know to best care for your childno Health Mgmt: Symptoms/Conditions Managed at Homebehavioral health; respiratory Behavioral Health Symptoms/Conditionsanxi ety Behavioral Health Managementmanaged Are You no Respiratory Symptoms/Conditionsasth ma Respiratory Managementmanaged Are You Currently Breastfeedingno Relationship/Environ: Resource/Environmental Concernsnone Primary Caregivermother [place]ticipated [place] Services Anticipated at Transitionnone Information Review: Allergies, Home Meds and Significant Events have been Reviewed and Verified with Patient/Familyyes ALLERGY, INTOLERANCE, ADVERSE EVENT: Allergies: hydrOXYzine: Drug, Rash, Active Electronic Signatures: Miladys Poole (MICHAELA) (Signed 13-Feb-2019 10:00) Authored: Profile, Additional Information Last Updated: 13-Feb-2019 10:00 by Miladys Poole (MICHAELA) References: 1. Data Referenced From Patient Profile - Pediatric v2 12-Mar-2018 18:17 2. Data Referenced From 1. Vital Signs - Peds/Infant 13-Feb-2019 09:27 Normal [facility] CBC AUTO DIFFon 11-09-2017 Basophils Auto #/vol (Bld) 0.1 103/ul Normal 0.0-0.1 [facility] Comment on above: Performed By: #### C BC ####[facility] [address] [place] [address] [id number] Sarah Basophils/100 WBC Auto (Bld) 0.6 % Normal 0.2-2.0 [facility] Comment on above: Performed By: #### C BC ####[facility] Sev[address] [place] [address] 82300Spxpxi Sarah Eosinophils Auto #/vol (Bld) 0.1 103/ul Normal 0.0-0.7 [facility] Comment on above: Performed By: #### C BC ####[facility] Ont[address] [place] [address] 23578Kjpkau Sarah Eosinophils/100 WBC Auto (Bld) 1.6 % Normal 0.9-7.0 [facility] Comment on above: Performed By: #### C BC ####[facility] [address] [place] [address] 72259Oouquo Sarah Erythrocyte distribution width Auto Ratio (RBC) 12.7 % Normal 11.0-15.0 [facility] Comment on above: Performed By: #### C BC ####[facility] Mpvfnmtx[address] [place] [address] 26735Wcemgh Sarah Hematocrit Auto Volume Fraction (Bld) 38.2 % Normal 36.0-48.0 [facility] Comment on above: Performed By: #### C BC ####[facility] [address] [place] [id number] Sarah Hemoglobin mass conc (Bld) 13.0 g/dL Normal 12.0-16.0 [facility] Comment on above: Performed By: #### C BC ####[facility] E[address]8091 [place], [place] [address]Njgejt Sarah IG # 0.03 10e3/ul Normal 0.00-0.03 [facility] Comment on above: Performed By: #### C BC ####[facility] [address] [place], [place] [id number] Sarah IG % 0.4 % Normal 0.0-0.5 [facility] Comment on above: Performed By: #### C BC ####[facility] A[address] [place], [place] [address]Gerken Sarah Lymphocytes Auto #/vol (Bld) 2.1 103/ul Normal 1.2-3.8 [facility] Comment on above: Performed By: #### C BC ####[facility] [address] [place] [address] Sarah Lymphocytes/100 WBC Auto (Bld) 25.9 % Normal 20.5-60.0 [facility] Comment on above: Performed By: #### C BC ####[facility] [address] [place], [place] [id number] Sarah MANUAL DIFF REQ NO Normal The [facility] Comment on above: Performed By: #### C BC ####[facility] Qdcbraw[address] [place], [place] [address]Gerken Sarah MCH Auto Entitic mass (RBC) 28.6 pg Normal 26.7-34.0 [facility] Comment on above: Performed By: #### C BC ####[facility] V[address] [place], [place] [address]Gerken Sarah MCHC Auto mass conc (RBC) 34.0 g/dL Normal 29.9-35.2 [facility] Comment on above: Performed By: #### C BC ####[facility] [address] [place] [address] [id number] Sarah MCV Auto Entitic volume (RBC) 84.1 fL Normal 79.1-95.6 [facility] Comment on above: Performed By: #### C BC ####[facility] Rq[address] [place] [address] 30188Jjzfwo Sarah Monocytes Auto #/vol (Bld) 0.6 103/ul Normal 0.3-0.8 [facility] Comment on above: Performed By: #### C BC ####[facility] [address] [place] [address] 20221Psnxmc Sarah Monocytes/100 WBC Auto (Bld) 7.0 % Normal 1.7-12.0 [facility] Comment on above: Performed By: #### C BC ####[facility] [address] [place] [address] 63707Gcqfls Sarah Neutrophils Auto #/vol (Bld) 5.3 103/ul Normal 1.4-6.5 [facility] Comment on above: Performed By: #### C BC ####[facility] [address] [place] [address] 30311Gnokiz Sarah Neutrophils/100 WBC Auto (Bld) 64.5 % Normal 43.0-75.0 [facility] Comment on above: Performed By: #### C BC ####[facility] [address]ps[address] [place] [address] 40460Yylayr Sarah Platelet mean volume Auto Entitic volume (Bld) 9.9 fL Normal 9.5-13.5 [facility] Comment on above: Performed By: #### C BC ####[facility] V[address]ip[address] [place] [address] 13821Bcpiiy Sarah Platelets Auto #/vol (Bld) 156 103/ul Normal 150-450 [facility] Comment on above: Result Comment: SCAN SHOWS SLIGHT PLT CLUMPING / Performed By: #### C BC ####[facility] Awrt[address] [place] [address] 50588Cpsdum Sarah RBC Auto #/vol (Bld) 4.54 106/ul Normal 3.40-5.30 [facility] Comment on above: Performed By: #### C BC ####[facility] [address] [place] [address] WBC Auto #/vol (Bld) 8.2 103/ul Normal 4.0-11.0 [facility] Comment on above: Performed By: #### C BC ####[facility] Fvximx[address] [place] [address] DRUG SCREEN RAPID (URINE)on 11-09-2017 AMP Negative Normal NEGATIVE [facility] Comment on above: Performed By: #### D RUGRPD ####[facility] [address] [place] [address] BAR Negative Normal NEGATIVE [facility] Comment on above: Performed By: #### D RUGRPD ####[facility] [address] [place] [address] BUP Negative Normal NEGATIVE [facility] Comment on above: Performed By: #### D RUGRPD ####[facility] L[address] [place] [address] BZO Negative Normal NEGATIVE [facility] Comment on above: Performed By: #### D RUGRPD ####[facility] [address] [place] [address] LYUDMILA Negative Normal NEGATIVE [facility] Comment on above: Performed By: #### D RUGRPD ####[facility] [address] [place] [address] CUT-OFFS SEE BELOW Normal [facility] Comment on above: Result Comment: AMP (Amphetamine): 500ng/mL, BAR (Barbituates): 200 ng/mL, BZO (Benzodiazepines): 150 ng/mL, BUP (Buprenorphine): 10 ng/mL, LYUDMILA (Cocaine): 150 ng/mL, mAMP (Methamphetamine): 500 ng/mL, MTD (Methadone): 200 ng/mL, OPI (Opiates): 100 ng/mL or 2000 ng/mL, OXY (Oxycodone): 100 ng/mL, PCP (Phencyclidine): 25 ng/mL, PPX (Propoxyphene): 300 ng/mL, THC (Cannabinoids): 50 ng/mL, TCA (Trycyclic Antidepressants): 300 ng/mL Performed By: #### D RUGRPD ####[facility] Pntusknbcz6288 [address] Sarah DRUG CUT HEADER DRUG CLASS TEST SYST EM CUT-OFF CONCENTRATIONS ARE FOLLOWS: Normal [facility] Comment on above: Performed By: #### D RUGRPD ####[facility] Egkkthawbh4263 [address] Sarah mAMP Negative Normal NEGATIVE [facility] Comment on above: Performed By: #### Faith RUGRPD ####[facility] [address] [place] [address] Sarah MTD Negative Normal NEGATIVE [facility] Comment on above: Performed By: #### Faith RUGRPD ####[facility] [address] [place] [address] Sarah OPI Negative Normal NEGATIVE [facility] Comment on above: Performed By: #### Faith RUGRPD ####[facility] Ahhirchaue5519 [address] Sarah OXY Negative Normal NEGATIVE [facility] Comment on above: Performed By: #### Faith RUGRPD ####[facility] [address] [place] [address] Sarah PCP Negative Normal NEGATIVE [facility] Comment on above: Performed By: #### Faith RUGRPD ####[facility] Azlfrxrnhf7298 [address] Sarah PPX Negative Normal NEGATIVE [facility] Comment on above: Performed By: #### Faith RUGRPD ####[facility] Yrwfczoltc3612 [address] Sarah TCA Negative Normal NEGATIVE [facility] Comment on above: Performed By: #### Faith RUGRPD ####[facility] [address] [place] [address] Sarah THC Negative Normal NEGATIVE [facility] Comment on above: Performed By: #### Faith HARPRPD ####[facility] [address] [place] [phone] Sarah ER URINE PROFILEon 8 BILIRUBIN Negative Normal NEGATIVE [facility] Comment on above: Performed By: #### E RUR ####[facility] [address] [place] [id number] Sarah BLOOD Negative Normal NEGATIVE [facility] Comment on above: Performed By: #### E RUR ####[facility] Mxdldwspoz1944 [address] Sarah CLARITY CLEAR Normal [facility] Comment on above: Performed By: #### E RUR ####[facility] Ujzgaewkux8644 [address] Sarah COLOR LT. YELLOW Normal YELLOW [facility] Comment on above: Performed By: #### E RUR ####[facility] [address] [place] [address] Sarah ERUAHD A micrscopic examination will be performed if indicated. Normal [facility] Comment on above: Performed By: #### E RUR ####[facility] Pgfnqitxuv9981 [address] Sarah GLUCOSE Negative Normal NEGATIVE [facility] Comment on above: Performed By: #### E RUR ####[facility] Mvfhjbsdrz6673 [address] [place] KETONES Negative Normal NEGATIVE [facility] Comment on above: Performed By: #### E RUR ####[facility] Jpuwwquksp8482 [address] [place] LEUKOCYTES Negative Normal NEGATIVE [facility] Comment on above: Performed By: #### E RUR ####[facility] Plbobelbhv4014 [address] [place] NITRITE Negative Normal NEGATIVE [facility] Comment on above: Performed By: #### E RUR ####[facility] Mhskpsdekh5842 [address] Sarah pH 5.5 Normal 5-9 [facility] Comment on above: Performed By: #### E RUR ####[facility] Pgjsekwzfb9537 [address] Sarah Protein mass conc Negative Normal [facility] Comment on above: Performed By: #### E RUR ####[facility] [address] [place] [address] Sarah SPEC GRAVITY <=1.005 Normal 1.005-<=1.02 5 [facility] Comment on above: Performed By: #### E RUR ####[facility] [address] [place] [address] Sarah UR MICRO IND NOT INDICATED Normal [facility] Comment on above: Performed By: #### E RUR ####[facility] [address] [place] [address] Sarah UROBILINOGEN 0.2 EU/dl Normal [facility] Comment on above: Performed By: #### E RUR ####[facility] [address] [place] [address] Sarah URon 11-09-2017 , QUAL Negative Normal NEGATIVE [facility] Comment on above: Performed By: #### P REGU ####[facility] [address] [place] [address] Sarah PROF CHEM 8 (BAS METB)on Anion gap 3 molar conc 15.8 mmol/L Normal [facility] Comment on above: Performed By: #### B MP ####[facility] [address] [place] [address] Sarah Calcium mass conc 9.9 mg/dL Normal 8.4-10.2 [facility] Comment on above: Performed By: #### B MP ####[facility] F[address] [place] [address] Sarah Chloride molar conc 109 mmol/L Critically high 98-107 [facility] Comment on above: Performed By: #### B MP ####[facility] [address] [place] [address] Sarah CO2 molar conc 21.0 mmol/L Critically low 22.0-30.0 [facility] Comment on above: Performed By: #### B MP ####[facility] [address] [place], [place] [address]Ccyyxs Sarah Creatinine mass conc 0.65 mg/dL Normal 0.52-1.04 [facility] Comment on above: Performed By: #### B MP ####[facility] [address] [place] [id number] Sarah Glucose mass conc 98 mg/dL Normal 74-106 [facility] Comment on above: Performed By: #### B MP ####[facility] [address] [place] 0780311Gerken Sarah Potassium molar conc 4.7 mmol/L Normal 3.4-5.0 [facility] Comment on above: Performed By: #### B MP ####[facility] [address] [place] [address]Gerken Sarah Sodium molar conc 141 mmol/L Normal 137-145 [facility] Comment on above: Performed By: #### B MP ####[facility] [address] [place] 0780311Gerken Sarah Urea nitrogen mass conc 12.0 mg/dL Normal 6.4-19.3 [facility] Comment on above: Performed By: #### B MP ####[facility] Thr[address]es[address] [place] 0780[address]Gerken Sarah Urea nitrogen/Creatinin e mass ratio 18.8 mg/mg Normal [facility] Comment on above: Performed By: #### B MP ####[facility] [address] [place] [address]80[address]Gerken Sarah AUTO DIFFon 11-04-2017 Basophils Auto #/vol (Bld) 0.05 x1000 Normal 0.00-0.20 [facility] Comment on above: Performed By: #### 1 43303, 0754617, 080827, 118984, 331929 ####[facility] [address] [place] [id number] Medical Director: Patric Monge MD Basos % 0.5 % Normal [facility] Comment on above: Performed By: #### 1 21491, 5053931, 931714, 224776, 469183 ####[facility] [address] [place] [address] Medical Director: Patric Monge MD Eos Count 0.05 x1000 Normal 0.00-0.50 [facility] Comment on above: Performed By: #### 1 83485, 9909707, 062110, 459092, 107238 ####[facility] [address] [place] [address] Medical Director: Patric Monge MD Eosinophils/100 leukocytes 0.5 % Normal [facility] Comment on above: Performed By: #### 1 02640, 6693717, 713684, 911977, 866504 ####[facility] [address] [place] [address] Medical Director: Patric Monge MD Lymphocytes 2.27 x1000 Normal 1.20-4.80 [facility] Comment on above: Performed By: #### 1 08430, 5381281, 454808, 912482, 572172 ####[facility] [address]ak[address] [place] [address] Medical Director: Patric Monge MD Lymphocytes/100 leukocytes 22.0 % Normal [facility] Comment on above: Performed By: #### 1 04522, 7034877, 274237, 861109, 369910 ####[facility] [address] [place] [address] Medical Director: Patric Monge MD Andrew Count 0.58 x1000 Normal 0.10-1.00 [facility] Comment on above: Performed By: #### 1 28350, 4304545, 919988, 256719, 632679 ####[facility] [address] [place] [address] Medical Director: Patric Monge MD Monocytes/100 leukocytes 5.6 % Normal [facility] Comment on above: Performed By: #### 1 35823, 0249616, 244295, 417319, 349831 ####[facility] Wh[address]qs[address] [place] [address] Medical Director: Patric Monge MD Neutrophils 7.38 x1000 Normal 1.40-8.80 [facility] Comment on above: Performed By: #### 1 52638, 1614673, 685257, 161373, 434646 ####[facility] [address] [place] [address] Medical Director: Ptaric Monge MD Neutrophils/100 WBC Auto (Bld) 71.4 % Normal [facility] Comment on above: Performed By: #### 1 05959, 6078966, 134720, 846699, 190965 ####[facility] [address]ec[address] [place] [address] Medical Director: Patric Monge MD COMPMETAon 11-04-2017 Albumin/Globulin Ratio 1.4 {ratio} [facility] Comment on above: Performed By: #### 1 36176, 6239398, 749574, 877725, 970793 ####[facility] [address]charj[address] [place] [address] Medical Director: Patric oMnge MD BUN/Creatinine Ratio 15.1 mg/mg [facility] Comment on above: Performed By: #### 1 43294, 2489754, 213837, 382356, 832437 ####[facility] [address] [place] [address] Medical Director: Patric Monge MD eGFR (non-black) [facility] Comment on above: Result Comment: Non GFR CalcMedical judgement is necessary to interpret GFR. The calculated GFR may not accurately reflect renal status in patients >70 years, women, acutely ill hospitalized patients and patients with acute renal failure or known renal disease. The MDRD GFR formula is valid only for adults greater than 18 years of age.Note:Creatinine clearance (not GFR) should be used for drug dosing. Performed By: #### 1 37063, 1832552, 075264, 563609, 067837 ####[facility] [address] [place] [address] Medical Director: Patric Monge MD GFR AA [facility]AL Normal [facility] Comment on above: Result Comment: Afri can Cam[place]onian GFR CalcMedical judgement is necessary to interpret GFR. The calculated GFR may not accurately reflect renal status in patients >70 years, women, acutely ill hospitalized patients and patients with acute renal failure or known renal disease. The MDRD GFR formula is valid only for adults greater than 18 years of age.Note:Creatinine clearance (not GFR) should be used for drug dosing. Performed By: #### 1 24827, 5707360, 209585, 481071, 675175 ####[facility] [address] [place] [address] Medical Director: Patric Monge MD Globulin 3.1 g/dL Normal [facility] Comment on above: Performed By: #### 1 90105, 8718090, 811807, 410279, 699904 ####[facility] [address] [place] [address] Medical Director: Patric Monge MD Osmolality 278 mOsm/kg Normal 275-295 [facility] Comment on above: Performed By: #### 1 89877, 3852849, 720715, 299510, 652564 ####[facility] [address]pxfd[address]44 [place] [address] Medical Director: Patric Monge MD Albumin 4.4 g/dL Normal 3.4-5.0 [facility] Comment on above: Performed By: #### 1 27483, 6640880, 959674, 343718, 052774 ####[facility] [address] [place], [place] [id number]) [phone] Director: Patric Mogne MD Alk Phos 51 unit/L Low 75-320 [facility] Comment on above: Performed By: #### 1 35407, 4884238, 284970, 528887, 673447 ####[facility] [address] [place] [address] Medical Director: Patric Monge MD Bilirubin (total) 0.41 mg/dL Normal 0.20-1.00 [facility] Comment on above: Performed By: #### 1 26351, 1098468, 569447, 884858, 103118 ####[facility] [address] [place] [address] Medical Director: Patric Monge MD Calcium 9.1 mg/dL Normal 8.5-10.5 [facility] Comment on above: Performed By: #### 1 44069, 0352218, 859167, 700775, 180761 ####[facility] [address] [place] [address] Medical Director: Patric Monge MD Chloride 106 mmol/L Normal 100-109 [facility] Comment on above: Performed By: #### 1 22224, 1759030, 446523, 145430, 160798 ####[facility] [address] [place] [address] Medical Director: Patric Monge MD CO2 23.0 mmol/L Normal 21.0-32.0 [facility] Comment on above: Performed By: #### 1 33777, 7169285, 374688, 458041, 456943 ####[facility] [address] [place] [address] Medical Director: Patric Monge MD Creatinine 0.7 mg/dL Normal 0.6-1.0 [facility] Comment on above: Performed By: #### 1 89221, 8112988, 757568, 811869, 951199 ####[facility] [address] [place] [address] Medical Director: Patric Monge MD Glucose mass conc 86 mg/dL Normal 72-100 [facility] Comment on above: Result Comment: Genna puncture should occur prior to sulfasalazine administration due to the potential for falsely depressed results. Venipuncture should occur prior to sulfapyridine administration due to the potential falsely elevated results.Baseline assay values before administration of sulfasalazine and sulfapyridine therapy would not be affected. Performed By: #### 1 73042, 5588962, 510414, 327330, 869980 ####[facility] [address] [place], [place] [id number]) [phone] Director: Patric Monge MD GOT 10 unit/L Low 15-37 [facility] Comment on above: Result Comment: Genna puncture should occur prior to sulfasalazine and/or sulfapyridine administration due to the potential for falsely depressed results.Baseline assay values before administration of sulfasalazine and sulfapyridine therapy would not be affected. Performed By: #### 1 22350, 0157042, 388158, 901892, 542968 ####[facility] [address] [place] [address] Medical Director: Patric Monge MD GPT 16 unit/L Normal 13-56 [facility] Comment on above: Result Comment: Genna puncture should occur prior to sulfasalazine and/or sulfapyridine administration due to the potential for falsely depressed results.Baseline assay values before administration of sulfasalazine and sulfapyridine therapy would not be affected. Performed By: #### 1 07988, 7986858, 086781, 510268, 046037 ####[facility] [address] [place], [place] [address]) [phone] Director: Patric Monge MD Potassium molar conc 3.3 mmol/L Low 3.5-5.1 [facility] Comment on above: Performed By: #### 1 91037, 4157373, 785103, 561623, 195391 ####[facility] [address] [place] [address] Medical Director: Patric Monge MD Protein 7.5 g/dL Normal 6.0-8.5 [facility] Comment on above: Performed By: #### 1 91988, 4701120, 179113, 996383, 958528 ####[facility] [address] [place] [address] Medical Director: Patric Monge MD Sodium 140 mmol/L Normal 135-145 [facility] Comment on above: Performed By: #### 1 13626, 1753999, 212061, 072351, 005891 ####[facility] [address] [place] [address] Medical Director: Patric Monge MD Urea nitrogen 10 mg/dL Normal 10-20 [facility] Comment on above: Performed By: #### 1 71089, 1706742, 351482, 722430, 564464 ####[facility] [address] [place] [address] Medical Director: Patric Monge MD ED Physician Reporton 2017 ED Physician Report Patient: LILIANA CHAVEZ Age: 16 years Sex: Female : 2000 Associated Diagnoses: None Author: BOLIVAR CHAIREZ MD History of Present Illness HISTORY OF PRESENT ILLNESS:Past medical history possible seizures recently completed a EEG at home presents for a chief complaint of seizure. Patient had as seizure like activity of shaking of her upper extremities and less proximal 5 minutes she did not have returned to baseline mental status and then had another one that lasted in total approximately 10 minutes. 4 total episode of approximately 20 minutes. Patient had a postictal state but her tongue or urinate on herself. No trauma. Per the patient that this is worse than her normal possible seizures for which she has been evaluated for. Patient has no other complaints at this time. No headache blurry vision nausea vomiting neck stiffness. No trauma. Severity is mild. No aggravating or relieving factors. Timing is one day. Course is intermittent. Context is possible seizuresED Caveat: [none]ROS *see ED CaveatGen: No fever, no chillsCV: No CP, no palpitationsResp: No SOB, no respiratory distressGI: No V/D, no abd painGU: No dysuria, no increased frequencySkin: No rash, no purulent lesionsEyes: No blurry vision, No double visionMSK: No back pain, no joint painNeuro: No IZAGUIRRE, no sensation changesPsych: No SI/HIAllergies:-Reviewe dP-See HPISocial History-No daily drinking, no IV drugsPHYSICAL EXAMGen: Alert, no acute distressSkin: Warm, no rashesHead: Normocephalic, atraumaticNeck: No midline tenderness, no nuchal rigidityEye: EOMI, PERRLA, normal conjunctivaENT: Mucous membranes moist, no pharyngeal erythemaCV: Normal rate, no rubsResp: Respirations unlabored, lungs clear to auscultationGI: Soft, non distended, no large abdominal masses, non tenderMSK: No midline back pain, no large joint effusionsNeuro: Alert and oriented, no focal neurological deficits observed, no dysmetria, no dysarthria, no dysphasia, 5 out of 5 strength in the upper and lower extremities, no visual field cuts, no pronator drift, cranial nerves grossly intact, normal gait observed, Psych: Cooperative, appropriate mood and affectDifferential Diagnosis:- Consideration is given for medication noncompliance, encephalitis, meningitis, subarachnoid hemorrhage, electrolyte abnormality, CVA, ACSMedical Decision Making:- Clinically most consistent with possible seizure. Given patient's symptoms with laboratory testing. Mother did give consent for labs however they do not want a head CT at this time. Mother will be present approximately one hour and we will discuss further. We [facility] will discuss with motherReevaluation/Conv ersations on care:- I have independently reviewed and interpreted all ordered labs/imaging available during my shift.- After extensive discussion regarding patient's evaluation I recommend transfer to either or her neurologist in [facility]. They are refusing ambulance transfer. Discussed risks and benefits of this.Patient seen and examined again and is currently electing to sign out AGAINST MEDICAL ADVICE. They are currently alert and oriented ?3, of sound judgment and decision-making capacity. Extensive conversation regarding the risks of leaving before completion of testing and treatment were explained which included multiple patients who had gone home only to in their sleep. Also discussed the concerns including infection, permanent disability, or from incomplete workup and treatment. Patient is able to verbally repeat these and explained their meaning in front of other medical staff. Despite further options including admission to the hospital they are electing to leave AGAINST MEDICAL ADVICE.These conversations were in front of other medical staff. Dx- SeizureDispo- Jean Chairez MD, MBAEastria regional medical center Medicine AttendingQuestions? Please contact my cell phone anytime. *This charting supersedes any ED resident or staff charting and was written using speech recognition software Health Status Allergies: Allergic Reactions (All)Severity Not DocumentedHydrOXYzine- No reactions were documented.. Past Medical/ Family/ Social History Medical history: No active or resolved past medical history items have been selected or recorded.. Surgical history: tonsillectomy.. Family history: No family history items have been selected or recorded.. Social history: Reviewed as documented in chart. Problem list: Active Problems (1)Asthma . Physical Examination Vital Signs Medical Decision Making Results review: I have independently viewed and interpreted all imaging and lab results available during my shift. Addendum Desiree CHAIREZ MD 11/04/2017 00:59 Normal [facility] ED Progress Noteon 8 Protein Pt arrived via squad from [facility] [place] staff member at bedside. Per staff member pt had a seizure that lasted 20 minutes, longer than normal. Per staff member pt has been having these seizures for a long time, [place] staff member states she can usually bring her back from them by talking to her. Pt presents calm/cooperative, AOx3, denies pain/sob, steady gait. Consent given by pt's mother for treatment via cell phone.Per staff member pt has been having these issues for two years, new onset twitching, memory loss with seizures. Pt was previously on various medications, not currently on medication. Per staff member pt stares and nods off, and loses blocks of time after seizures.PT RESTING COMFORTABLY TALKING WITH VISITORS AND WATCHING TV, NO SEIZURE ACTIVITY NOTED. GAVE SNACK AND PO KCL PER ORDER. AWAITING MOTHER. SPOKE WITH MOTHER AT LENGTH ABOUT TEST RESULTS AND POC. PT LIVES IN [place] AND HAS A NEUROLOGIST TO F/U WITH. PT IS SCHEDULED FOR AN MRI ON FRIDAY. PT JUST HAD AND 4 DAY PORTABLE EEG REMOVED YESTERDAY. MOTHER WILL CALL NEUROLOGIST IN AM. PT D/C'D HOME WITH S/S TO RETURN TO ED AND F/U CARE. PT A;ND MOTHER VERBALIZES UNDERSTANDING. Normal [facility] HCG QUANTon 11-04-2017 HCG, Quant <1.0 Normal [facility] Comment on above: Result Comment: 0.2- 1 weeks 5 -50 mIU/ml1 - 2 weeks 50-500 mIU/ml2 - 3 weeks 100-5,000 mIU/ml3 - 4 weeks 500-10,000 mIU/ml4 - 5 weeks 1,000-50,000 mIU/ml5 - 6 weeks 10,000-100,000 mIU/ml6 - 8 weeks 15,000-200,000 mIU/ml2 - 3 months 10,000-100,000 mIU/ml Performed By: #### 1 90166, 7870023, 506329, 010813, 655417 ####[facility] [address] [place] [address] Medical Director: Patric Monge MD HEMOon 11-04-2017 DIFF? No Normal [facility] Comment on above: Performed By: #### 1 36328, 4773077, 165103, 416841, 665603 ####[facility] [address] [place], [place] [address] Medical Director: Patric Monge MD Erythrocyte distribution width Auto Ratio (RBC) 13.4 % Normal 11.5-14.5 [facility] Comment on above: Performed By: #### 1 23874, 4186524, 140073, 397023, 293424 ####[facility] [address] [place], [place] [address] Medical Director: Patric Monge MD Erythrocytes (RBC) 4.42 x10 Normal 4.20-5.50 [facility] Comment on above: Result Comment: Note : RBC morphology is normal unless otherwise stated. Evaluation performed only if differential is requested. Performed By: #### 1 93430, 0939297, 570831, 327628, 935489 ####[facility] [address] [place], [place] [address]) [phone] Director: Patric Monge MD Hematocrit (HCT) 38.0 % Normal 36.0-46.[address] [facility] Comment on above: Performed By: #### 1 17097, 9018776, 386181, 011557, 466402 ####[facility] [address] [place] [address] Medical Director: Patric Monge MD Hemoglobin mass conc (Bld) 12.7 g/dL Normal 12.0-16.0 [facility] Comment on above: Performed By: #### 1 00695, 2120605, 505207, 253612, 461863 ####[facility] Trqoeetm28026 [place], [place] [address]) [phone] Director: Patric Monge MD MCH 28.7 pg Normal 25.0-32.0 [facility] Comment on above: Performed By: #### 1 36110, 9078099, 066343, 412111, 266319 ####[facility] [address] [place] [address] Medical Director: Patric Monge MD MCHC mass conc (RBC) 33.4 g/dL Normal 32.0-37.0 [facility] Comment on above: Performed By: #### 1 20846, 6534264, 119443, 385394, 510064 ####[facility] [address] [place] [address] Medical Director: Patric Monge MD MCV 86.0 fL Normal 80.0-100.0 [facility] Comment on above: Performed By: #### 1 65985, 1800691, 473633, 173936, 428497 ####[facility] [address]msx[address] [place] [address] Medical Director: Patric Monge MD Nucleated erythrocytes 0 /100WBC Normal [facility] Comment on above: Performed By: #### 1 81476, 5292485, 685747, 786536, 673365 ####[facility] [address] [place] [address] Medical Director: Patric Monge MD Platelet mean volume (PMV) 8.3 fL Normal 7.4-10.4 [facility] Comment on above: Performed By: #### 1 96744, 8095769, 128863, 891862, 617250 ####[facility] [address] [place] [address] Medical Director: Patric Monge MD Platelets 234 x1000 Normal 150-450 [facility] Comment on above: Performed By: #### 1 78315, 2288625, 431148, 258037, 505274 ####[facility] [address] [place] [address] Medical Director: Patric Monge MD WBC (Leukocytes) 10.3 10*3/uL Normal [facility] Comment on above: Performed By: #### 1 32360, 4693052, 708110, 034745, 716263 ####[facility] [address] [place] [address] Medical Director: Patric Monge MD WBC (Leukocytes) 10.3 x10 Normal 4.5-13.[address] [facility] Comment on above: Performed By: #### 1 95407, 7822017, 732142, 956283, 003341 ####[facility] [address]ef[address] [place] [address] Medical Director: Patric Monge MD MG LEVELon 11-04-2017 Magnesium 1.9 mg/dL Normal 1.6-2.6 [facility] Comment on above: Performed By: #### 1 59283, 5281166, 730754, 421929, 622855 ####[facility] [address]se[address]fsi[address] [place], [place] [address]) [phone] Director: Patric Monge MD UAon 11-04-2017 U MICRO Indicated Normal [facility] Comment on above: Performed By: #### 1 74449 ####[facility] [address] [place], [place] [address]) [phone] Director: Patric Monge MD Appearance, U Clear Normal [facility] Comment on above: Performed By: #### 1 81229 ####[facility] [address]demy[address] [place], [place] [address]) [phone] Director: Patric Monge MD Bilirubin, U Negative Normal Negative [facility] Comment on above: Performed By: #### 1 56072 ####[facility] [address] [place], [place] [address]) [phone] Director: Patric Monge MD Blood, U Moderate Abnormal Negative [facility] Comment on above: Performed By: #### 1 14027 ####[facility] [address]qrweuhe[address] [place], [place] [address]) [phone] Director: Patric Monge MD Color, U Straw Normal [facility] Comment on above: Performed By: #### 1 70386 ####[facility] [address]vo[address] [place], [place] [address]) [phone] Director: Patric Monge MD Glucose Qual, U Negative Normal Negative [facility] Comment on above: Performed By: #### 1 17319 ####[facility] [address]in[address] [place], [place] [address]) [phone] Director: Patric Monge MD Ketones, U Trace Abnormal Negative [facility] Comment on above: Performed By: #### 1 79629 ####[facility] Cxkgmdhw933[address] [place], [place] [address]) [phone] Director: Patric Monge MD Leukocyte Esterase, U Negative Normal Negative [facility] Comment on above: Performed By: #### 1 98965 ####[facility] [address]bt[address]ooz[address] [place], [place] [address]) [phone] Director: Patric Monge MD Nitrite, U Negative Normal Negative [facility] Comment on above: Performed By: #### 1 10064 ####[facility] [address] [place] [address] Medical Director: Patric Monge MD pH, U 6.0 Normal 4.5-8.0 [facility] Comment on above: Performed By: #### 1 45593 ####[facility] [address] [place] [address]) [phone] Director: Patric Monge MD Protein, U Negative Normal Negative [facility] Comment on above: Performed By: #### 1 60035 ####[facility] [address] [place] [address] [facility] Director: Patric Monge MD RBC/HPF, U <1 Normal 0-3 [facility] Comment on above: Performed By: #### 1 79994 ####[facility] [address] [place] [address] Medical Director: Patric Monge MD Specific [place], U 1.001 Normal 1.001-1.035 [facility] Comment on above: Performed By: #### 1 56209 ####[facility] [address] [place] [address] Medical Director: Patric Monge MD Urobilinogen Qual, U <2.0 mg/dl Normal <2.0 mg/dl [facility] Comment on above: Result Comment: EU/d l and mg/dl are equivalent units. Performed By: #### 1 55864 ####[facility] [address] [place] [address] Medical Director: Patric Monge MD ED Pre-Arrival Formon 2017 ED Pre-Arrival Form Pre-Arrival SummaryName: [facility], Current Date: 11/03/2017 21:47:44 EDTGender: Date of : Age: Pre-Arrival Type: EMSETA: 11/03/2017 22:10:00 EDTPrimary Care Physician: Presenting Problem: Pre-Arrival User: Matthew Perez RN Source: Location: [address] [place] [address] Emergency [address] [place] [address] Notes: Vital Signs: Doctor Call Back: DNR Status: Miscellaneous Issues: Normal [facility] Coding Summary.on 07-29-2017 Coding Summary. CODING DATE: 018 FINAL [facility] STATUS: Home (Routine DC) PAYOR: Commercial Insurance ADMIT DX: REASON FOR VISIT DX: R10.9 Unspecified abdominal pain FINAL DX: PRINCIPAL: R10.9 Unspecified abdominal pain SECONDARY: PROCEDURES DOCTOR NAME DATE NOTE: The code number assigned matches the documented diagnosis and / or procedure in the patient's chart. However, the narrative phrase printed from the coding software may appear abbreviated, or result in slightly different terminology. Coded By: Stella Chua Date Saved: 07/29/2017 03:43 pm Normal [facility] ED Clinical Summaryon 2017 ED Clinical Summary [place] [id number] ED Clinical SummaryPerson Information Name: Jarod CHAVEZ/Shirley Age: 16 Years : 2000 12:00 AM Sex: Female Language:Yoruba PCP: RENETTA MEZA DO Marital Status:Single Visit Id: Visit Reason:Abdominal pain; L SIDE ABD PAIN Speciality: Acuity: 3 Enc Type: Emergency Med Service: Emergency Arrival:07/27/2017 8:34 PM Discharge: 07/27/2017 10:29 PM LOS: 000 01:55 Checkin:07/27/2017 8:34 PM Checkout: 07/27/2017 10:29 PM Dispo Type: Home (Routine DC) EVENTS:Event Name Event Status Request Date/Time Start Date/Time Complete Date/Time Arrive Complete 07/27/2017 8:34 PM 07/27/2017 8:34 PM 07/27/2017 8:34 PM Document Home Meds Complete 07/27/2017 8:34 PM 07/27/2017 9:03 PM 07/27/2017 9:03 PM Triage Complete 07/27/2017 8:34 PM 07/27/2017 8:48 PM 07/27/2017 8:48 PM Bed Assign Complete 07/27/2017 8:41 PM 07/27/2017 8:41 PM 07/27/2017 8:[address] Exam Complete 07/27/2017 8:41 PM 07/27/2017 8:43 PM 07/27/2017 8:43 PM RN Exam Complete 07/27/2017 8:41 PM 07/27/2017 9:02 PM 07/27/2017 9:02 PM Registration Complete 07/27/2017 8:43 PM 07/27/2017 8:55 PM 07/27/2017 8:[address] Exam Complete 07/27/2017 8:45 PM 07/27/2017 8:45 PM 07/27/2017 8:45 PM Reg Complete Request 07/27/2017 8:55 PM Reg Bed Request Complete 07/27/2017 8:55 PM 07/27/2017 8:55 PM 07/27/2017 8:55 PM Pending Labs Complete 07/27/2017 9:03 PM 07/27/2017 9:53 PM Lab Complete 07/27/2017 9:03 PM 07/27/2017 9:53 PM Urine Collect Complete 07/27/2017 9:03 PM 07/27/2017 9:53 PM Meds Admin Complete 07/27/2017 9:18 PM 07/27/2017 9:39 PM Discharge Complete 07/27/2017 10:21 PM 07/27/2017 10:30 PM 07/27/2017 10:30 PM Transfer Complete 07/27/2017 10:30 PM 07/27/2017 10:30 PM 07/27/2017 10:30 PM ADDRESS:[place] [id number] PHYS DOC NOTES: MEDICAL INFORMATION: Prescriptions Given:Home Meds Display albuterol (Pro-Air HFA CFC free 90 mcg/inh MDI) 2 puff(s), Inhalation, QID, Refill(s) 0 PATIENT EDUCATION INFORMATION: Instructions:Abdominal Pain, Pediatric Follow up:With: Address: When: RENETTA MEZA [address] [place] [id number] [employer] ([employer] In 3 days 07/30/2017 DIAGNOSIS:Abdominal pain Normal [facility] ED Note-Physicianon 07-29-19 ED Note-Physician Basic Information Ti me Seen: Fabio Mcclure MD 07/27/2017 20:45Chief Complaint Pt. c/o left abodminal patient that started at 1945 just after eating. Pt states this has happened multiple times and it is always after she eats something. Denies any N/V, no constipation or diarrhea.History of Present Illness Pt is a 16YOF who presents with abdominal pain. Pain is a constant and sharp feeling located on the left side of the abdomen that started this evening after eating dinner; Pain rated a +9/10 pain at admission to ER but has decreased in severity since initial evaluation. One week ago, Pt had an episode diarrhea and feeling feverish she thought was a viral illness and has resolved. Pt has had many episodes of similar episodes of abdominal pain after eating that lasts about ten minutes and goes away but usually is not as severe as today. Pt admits to experiencing intermittent panic attacks that are not medically treated. Pt denies any vomiting, abnormal urination, bowel movements, or vaginal discharge. Pt denies any recent travel or exposure to sick contacts.Review of Systems Constitutional: no fever, no chills, no sweats, no weakness Skin: no Jaundice, no rash, no lesions, nopetechiae ENMT: no ear pain, no sore throat, no congestion, no hoarseness Respiratory: no shortness of breath, no cough, no orthopnea, no wheezing Cardiovascular: no chest pain, no palpitations, no edema Gastrointestinal: left sided abdominal pain, no nausea, no vomiting, mild diarrhea the past week, no GI bleeding Genitourinary: no dysuria, no hematuria, no discharge, no pain Musculoskeletal: no back pain, no trauma Neurologic: no headache, no dizziness, no numbness, no weakness Psychiatric: intermittent panic attacks, no sleeping problems, no irritability, no mood swings/depression. Heme/Lymph: no bleeding tendency, no bruising tendency, no petechiae, no swollen nodes Allergy/Immunologic: no seasonal allergies, no food allergies, no recurrent infections, no impaired immunity Additional ROS info: Except as noted in the above Review of Systems and in the History of Present Illness all other systems have been reviewed and are negative or noncontributory.Physica l Exam Vitals & Measurements T: 36.4 ?C (Oral) HR: 86(Peripheral) RR: 16 BP: 142/83 SpO2: 100% HT: 165 cm WT: 57 kg BMI: 20.94 General: alert and cooperative sitting comfortably on exam bed looking mildly anxius, no acute distress Skin: warm, dry Head: no trauma, normocephalic Neck: Trachea midline, no adenopathy, no tenderness Eye: normal conjunctiva, sclera clear ENMT: TM's clear, oral mucosa moist, no pharyngeal erythema or exudate Cardiovascular: regular rate and rhythm, normal peripheral perfusion Respiratory: Lungs CTA, respirations non labored Chest wall: no deformity. Gastrointestinal: soft, non distended, mild tenderness LUQ and LLQ, no guarding. Back: No tenderness, Normal ROM, Normal alignment. Extremities: no deformity, no trauma Neurological: LOC appropriate for age, speech normal Psychiatric: cooperative, affect appropriate for age, normal judgement, normal psychiatric thoughts.Medical Decision Making patient is feeling better after receiving mixture of antacid and . Her abdomen is re examined and she still has LLQ tenderness but definitely decreased and now mild. Patient and mother informed that we are not certain as to the cause of her pain but IBS is consideration shey. in light of the patient's past history of anxiety.Assessment/Plan abdominal painDisposition Plan Patient Discharge Condition improved Discharge Disposition home Discharge Prescription List Prescriptions No active prescription medications Follow-up No qualifying data availableProblem List/Past Medical History Ongoing No qualifying data Historical No qualifying dataProcedure/Surgical History Tonsillectomy.Medicatio ns Inpatient Al hydroxide/Mg hydroxide/simethicone 200 mg-200 mg-20 mg/5 mL oral suspension, 30 mL, Oral, Once Elixir, 10 mL, Oral, Once Home Pro-Air HFA CFC free 90 mcg/inh MDI, 2 puff(s), Inhalation, QIDAllergies No Known AllergiesSocial History Alcohol - Denies Alcohol Use, 07/27/2017 Current, 07/27/2017 Substance Abuse - Denies Substance Abuse, 07/27/2017 Current, 07/27/2017 Tobacco - Denies Tobacco Use, 07/27/2017 Never (less than 100 in lifetime) Tobacco Use:., 07/27/2017Lab Results No qualifying data available.Diagnostic Results No qualifying data available. Normal [facility] Comment on above: Result Comment: Elec tronically Signed By: Delfina Vargas\.br\Date and Time Signed: 07/27/17 21:29 EDT\.br\Electronically Co-Signed By: Fabio Mcclure MD\.br\Date and Time Co-Signed: 07/27/17 22:22 EDT ED Patient Summaryon 018 ED Patient Summary (Inserted Image. Jenni ble to display) [place] [id number] Patient Discharge Instructions Person Information Name: LILIANA CHAVEZ Age: 16 Years Date: 07/27/2017 8:34 PMDischarge Diagnosis: Abdominal pain Primary Care Physician: RENETTA MEZA DO Provider InformationPrimary Provider: Cher Mcclure MD Ladies' Hat Trimmer:None The exam and treatment you received in the Emergency Department were for an urgent problem and are not intended as complete care. It is important that you follow up with a doctor, nurse practitioner, or physician?s bookkeeper assistant for ongoing care. If your symptoms become worse or you do not improve as expected and you are unable to reach your usual health care provider, you should return to the Emergency Department. We are available 24 hours a day. LILIANA CHAVEZ has been given the following list of patient education materials, prescriptions and follow-up instructions: Follow-up Instructions:With: Address: When: RENETTA MEZA [address] [place] [id number] Business (1) In 3 days 07/30/2017 In the event that this physician does not participate in your insurance network, please consult with your insurance company to find a nearby participating provider. Patient Education Materials:Abdominal Pain, Pediatric A MESSAGE TO ALL PATIENTS REGARDING OPIOIDS PRESCRIPTION OPIOIDS: WHAT YOU NEED TO KNOW Prescription opioids can be used to help relieve bbehyioa-zu-nqnnnw pain and are often prescribed following a surgery or injury, or for certain health conditions. These medications can be an important part of the treatment but also come with serious risks. It is important to work with your healthcare provider to make sure you are getting the safest, most effective care. WHAT ARE THE RISKS AND SIDE EFFECTS OF OPIOID USE?Prescription opioids carry serious risks of addiction and overdose, especially with prolonged use. An opioid overdose, often marked by slowed breathing, can cause sudden . The use of prescription opioids can have a number of side effects as well, even when taken as directed:? Tolerance?meaning you might need to take more of the medication for the same pain relief? Physical dependence?meaning you have symptoms of withdrawal when a medication is stopped? Increased sensitivity to pain ? Constipation? Nausea, vomiting, and dry mouth? Sleepiness and dizziness? Confusion? Depression? Low levels of testosterone that can result in lower sex drive, energy, and strength? Itching and sweating RISKS ARE GREATER WITH:? History of drug misuse, substance use disorder, or overdose? Mental health conditions (such as depression or anxiety)? Sleep apnea? Older age (65 years and older)? Avoid alcohol while taking prescription opioids. Also, unless specifically advised by your health care provider, medications to avoid include:? Benzodiazepines (such as Xanax or Valium)? Muscle relaxants (such as Soma or Flexeril)? Hypnotics (such as Ambien or Lunesta)? Other prescription opioids KNOW YOUR OPTIONSTalk to your health care provider about ways to manage your pain that don?t involve prescription opioids. Some of these options may actually work better and have fewer risks and side effects. Options may include:? Pain relievers such as acetaminophen, ibuprofen, and naproxen? Some medication that are also used for depression or seizures? Physical therapy and exercise? Cognitive behavioral therapy, a psychological, goal-directed approach, in which patients learn how to modify physical, behavioral, and emotional triggers of pain and stress. IF YOU ARE PRESCRIBED OPIOIDS FOR PAIN:? Never take opioids in greater amounts or more often than prescribed.? Follow up with your primary health care provider.o Work together to create a plan on how to manage your pain.o Talk about ways to help manage your pain that don?t involve prescription opioids.o Talk about any and all concerns and side effects.? Help prevent misuse and abuseo Never sell or share prescription opioids.o Never use another person?s prescription opioids.? Store prescription opioids in a secure place and out of reach of others (this may include visitors, children, friends, and family).? Safely dispose of unused prescription opioids: Find your community drug take-back program or your pharmacy mail-back program, or flush them down the toilet, following guidance from the Food and Drug Administration (www.fda.gov/Drugs/Reso urcesForYou).? Visit www.cdc.gov/drugoverdos e to learn about the risks of opioids abuse and overdose.? If you believe you may be struggling with addiction, tell your health laboratory animal caretaker and ask for guidance or call [facility]?S National Helpline at 5-784-046-GHZJ. v Source: US Department of Health and Human Services/Center for Disease Control & Prevention [facility] Medications Given:Medication Dose Route Al hydroxide/Mg hydroxide/simethicone 30.00 mL Oral atropine/hyoscyamine/PB /scopolamine 10.00 mL Oral Medication Information:Medications to Continue with No ChangesOther Medicationsalbuterol (Pro-Air HFA CFC free 90 mcg/inh MDI) 2 Puffs Inhalation 4 times a day.Comment: Pharmacy Information: Thank you for choosing [facility] P atient Education Materials: Abdominal PainAbdominal pain is one of the most common complaints in pediatrics. Many things can cause abdominal pain, and the causes change as your child grows. Usually, abdominal pain is not serious and will improve without treatment. It can often be observed and treated at home. Your child's health care provider will take a careful history and do a physical exam to help diagnose the cause of your child's pain. The health care provider may order blood tests and X-rays to help determine the cause or seriousness of your child's pain. However, in many cases, more time must pass before a clear cause of the pain can be found. Until then, your child's health care provider may not know if your child needs more testing or further treatment.HOME CARE INSTRUCTIONS? Monitor your child's abdominal pain for any changes.? Give medicines only as directed by your child's health care provider.? Do not give your child laxatives unless directed to do so by the health care provider.? Try giving your child a clear liquid diet (broth, tea, or water) if directed by the health care provider. Slowly move to a bland diet as tolerated. Make sure to do this only as directed.? Have your child drink enough fluid to keep his or her urine clear or pale yellow.? Keep all follow-up visits as directed by your child's health care provider.SEEK MEDICAL CARE IF:? Your child's abdominal pain changes.? Your child does not have an appetite or begins to lose weight.? Your child is constipated or has diarrhea that does not improve over 2?3 days.? Your child's pain seems to get worse with meals, after eating, or with certain foods.? Your child develops urinary problems like bedwetting or pain with urinating.? Pain wakes your child up at night.? Your child begins to miss school.? Your child's mood or behavior changes.? Your child who is older than 3 months has a fever.SEEK IMMEDIATE MEDICAL CARE IF:? Your child's pain does not go away or the pain increases.? Your child's pain stays in one portion of the abdomen. Pain on the right side could be caused by appendicitis.? Your child's abdomen is swollen or bloated.? Your child who is younger than 3 months has a fever of 100?F (38?C) or higher.? Your child vomits repeatedly for 24 hours or vomits blood or green bile.? There is blood in your child's stool (it may be bright red, dark red, or black).? Your child is dizzy.? Your child pushes your hand away or screams when you touch his or her abdomen.? Your is extremely irritable.? Your child has weakness or is abnormally sleepy or sluggish (lethargic).? Your child develops new or severe problems.? Your child becomes dehydrated. Signs of dehydration include:? Extreme thirst.? Cold hands and feet.? Blotchy (mottled) or bluish discoloration of the hands, lower legs, and feet.? Not able to sweat in spite of heat.? Rapid breathing or pulse.? Confusion.? Feeling dizzy or feeling off-balance when standing.? Difficulty being awakened.? Minimal urine production.? No tears.MAKE SURE YOU:? Understand these instructions.? Will watch your child's condition.? Will get help right away if your child is not doing well or gets worse.Document Released: 01/19/2014 Document Revised: 08/15/2014 Document Reviewed: 01/19/2014ExitCare? Patient Information ?2014 [employer] [facility]. This information is not intended to replace advice given to you by your health care provider. Make sure you discuss any questions you have with your health care provider.SCOTT Suarez CORA , have received the following patient education materials/instructions and have verbalized understanding: Patient Education Materials: Abdominal Pain, Pediatric Follow-up Instructions: With: Address: When: RENETTA MEZA [address] [place], [place] [id number] [facility] (1) In 3 days 07/30/2017 Prescriptions: Patient Signature Date Clinician/Nurse Signature _ Date 07/27/17 22:30:05 [facility] Progress Note-Nurseon 2017 Progress Note-Nurse Pt and mother provided with written and verbal discharge instructions. Pt and mother deny having any concerns or questions at this time. Pt getting dressed independtly for discharge at this time. Normal [facility] Progress Note-Nurse Pt sitting in bed, observing laughing and conversing with mother, playing on cell phone. When questioned about abdominal pain, pt states she feels much better and has felt improvement after recently passing flatus. Physician made aware of pts improved status. Normal [facility] Progress Note-Nurseon 2017 Progress Note-Nurse Pt sitting upright in bed conversing with mother, laughing and appearing in good spirits. Pt states her abdominal pain is improved. Family updated on plan of care at this time, instructed to not drink gatorade brought from home at this time. Normal [facility] UA With Cult Reflexon 2017 BACTERIA:PRTHR:PT: URINE SED:ORD:MICROSCOPY .LIGHT 1+ /HPF Abnormal Trace [facility] Comment on above: Performed By: #### 1 [id number] ####[facility] [address] [place] [address] Bilirubin Ql (U) Negative Normal Negative [facility] Comment on above: Performed By: #### 1 [id number] ####[facility] [address] [place] [id number] COLOR:TYPE:PT:URIN E:NOM:AUTO YELLOW Normal Yellow [facility] Comment on above: Performed By: #### 1 [id number] ####[facility] [address] [place] [address] Erythrocytes (RBC) 0-3 Normal 0-3 [facility] Comment on above: Performed By: #### 1 [id number] ####[facility] [address] [place] [address] GLUCOSE:MCNC:PT:UR INE:QN:TEST STRIP Negative Normal Negative [facility] Comment on above: Performed By: #### 1 [id number] ####[address] [address] KETONES:MCNC:PT:UR INE:QN:TEST STRIP Negative Normal Negative [facility] Comment on above: Performed By: #### 1 [id number] ####[address] [address] LEUKOCYTES:PRTHR:P T:URINE:ORD:AUTOMA ORA Negative Normal Negative [facility] Comment on above: Performed By: #### 1 [id number] ####[address] [address] UA Spec Desc Clean Catch Normal [facility] Comment on above: Performed By: #### 1 [id number] ####[address] [address] Urine, clarity CLEAR Normal Clear [facility] Comment on above: Performed By: #### 1 [id number] ####[address] [address] Urine, hemoglobin presence Negative Normal Negative [facility] Comment on above: Performed By: #### 1 [id number] ####[address] [address] Urine, leukocytes in sedmiment 0-5 Normal 0-5 [facility] Comment on above: Performed By: #### 1 [id number] ####[address] [address] Urine, mucus presence in sediment TRACE Normal [facility] Comment on above: Performed By: #### 1 [id number] ####[address] [address] Urine, nitrite presence Negative Normal Negative [facility] Comment on above: Performed By: #### 1 [id number] ####[address] [address] Urine, pH 5.5 [pH] Invalid Interpretation Code 5.0-9.0 [facility] Comment on above: Performed By: #### 1 [id number] ####[facility] [address] [place] [address] Urine, protein Negative Normal Negative [facility] Comment on above: Performed By: #### 1 [id number] ####[facility] [address] [place] [address] Urine, specific gravity >=1.030 Invalid Interpretation Code 1.005-1.030 [facility] Comment on above: Performed By: #### 1 [id number] ####[facility] [address] [place] [address] Urine, squamous cells in sediment 9-10 Normal 0-2 [facility] Comment on above: Performed By: #### 1 [id number] ####[facility] [address] [place] [address] Urine, urobilinogen 0.2 {Kong'U}/dL Normal 0.0-1.0 [facility] Comment on above: Performed By: #### 1 [id number] ####[facility] [address] [place] [address] Vital Signs Date Time Vital Sign Value Performing Clinician Facility 08-23-2022 18:45-0400 Body height 157.48 cm Hank Gomez Other [facility] [place] Other 08-23-2022 18:45-0400 Body mass index (BMI) [Ratio] 25.6 kg/m2 Hank Gomez Other [facility] [place] Other 08-23-2022 18:45-0400 Body temperature 98.3 [degF] Hank Gomez Other [facility] Other 08-23-2022 18:45-0400 Body weight 63.5 kg Hank Gomez Other [facility] Other 08-23-2022 18:45-0400 Respiratory rate 18 /min Farhatdomenic Jason Other [facility] Other 08-23-2022 18:45-0400 SaO2% (BldA) [Mass fraction] 98 % Hank Gomez Other [facility] Other Encounters Encounter Date Encounter Type Care Provider Facility Start: 08-23-2022 End: 08-23-2022 ambulatory Farhatdomenic Gomez Other [facility] Other Start: 08-23-2022 Office outpatient visit 15 minutes Hank Gomez [facility] Start: 02-15-2022 End: 02-15-2022 ambulatory Renetta Marios Other [facility] Other Start: 02-15-2022 Telephone encounter Renetta Kuns [facility] [place] Start: 02-14-2022 End: 02-14-2022 ambulatory Renetta Kuns Other [facility] Other Start: 02-14-2022 [facility] Start: 02-12-2022 End: 02-12-2022 ambulatory Renetta Kuns Other [facility] Other Start: 02-12-2022 Nursing evaluation o f patient and report Renetta Kuns [facility] [place] Start: 02-12-2022 Telephone encounter Renetta Kuns [facility] [place] Start: 11-06-2021 End: 11-06-2021 ambulatory Renetta Kuns Other [facility] Other Start: 11-06-2021 Tele[facility] Start: 11-05-2021 End: 11-05-2021 ambulatory Renetta Kuns Other [facility] Other Start: 11-05-2021 Telephone encounter Renetta MOTT [facility] [place] Start: 11-09-2017 End: 11-09-2017 Patient encounter PILAR TORRE Facility:[facility] Start: 11-03-2017 End: 11-04-2017 Emergency department patient visit [address] [facility] Facility:[id number] Start: 07-27-2017 End: 07-28-2017 Emergency department patient visit Fabio Mcclure [place] Procedures Date Procedure Procedure Detail Performing Clinician Start: 01-29-2019 Follow-up visit Start: 04-12-2018 Follow-up visit History and physical examination, sports participation Renetta Meza Other Immunizations Immunization Date Immunization Notes Care Provider Fa vikas 10-21-2018 meningococcal polysaccharide (groups A, C, Y and W-135) diphtheria toxoid conjugate vaccine (MCV4P) Renetta Meza Other [facility] Other 10-05-2013 tetanus toxoid, reduced diphtheria toxoid, and acellular pertussis vaccine, adsorbed Renetta Derrick Other [facility] Other 09-17-2006 measles, mumps, rubella, and varicella virus vaccine Renetta Kuns Other [facility] Other 09-17-2006 poliovirus vaccine, inactivated Renetta Marios Other [facility] Other 06-10-2002 measles, mumps, rubella, and varicella virus vaccine Renetta Kuns Other [facility] Other 06-15-2001 haemophilus influenzae type b conjugate and Hepatitis B vaccine Renetta Kuns Other [facility] Other 06-15-2001 poliovirus vaccine, inactivated Renetta Kuns Other [facility] Other 04-21-2001 poliovirus vaccine, inactivated Renetta Kuns Other [facility] Other 02-09-2001 haemophilus influenzae type b conjugate and Hepatitis B vaccine Renetta Kuns Other [facility] Other 02-09-2001 poliovirus vaccine, inactivated Renetta Kuns Other [facility] Other 2000 hepatitis B vaccine, pediatric or pediatric/adolescent dosage Renetta Kuns Other [facility] Other NEGATED: Highlighted row has not occurred! 9 influenza, seasonal, injectable Patient Objection Renetta Kuns Other [facility] Other Payers Date Payer Category Payer Private Health Insurance 1959 Private Health Insurance [id number] Unknown [id number] Social History Date Type Detail Facility Unknown if ever smoked [facility] Other Sex Assigned At Sex Assigned At Bir th [facility] Other Evaluation note 08-23-2022 Note Date & Type Note Facility 08-23-2022 Evaluation note Encounter Date Diagnosis Assessment Notes August, Abrasion, left knee, initial encounter (ICD-10 - S80.212A) Rx ointment as directed to wound. Wound care discussed with pt. Keep area completely clean and dry. Keep open to air as much as possible. Pt to monitor for spreading redness, warmth, swelling, purulent drainage, and fever. F/u immediately for these sx. Otherwise f/u PRN. Pt understood and agreed to treatment plan. [facility] Other Evaluation note 02-15-2022 Note Date & Type Note Facility 02-15-2022 Evaluation note Encounter Date Diagnosis Assessment Notes Feb, Asthma (ICD-10 - J45.909) [facility] Other Evaluation note 02-14-2022 Note Date & Type Note Facility 02-14-2022 Evaluation note Encounter Date Diagnosis Assessment Notes Feb, Asthma (ICD-10 - J45.909) [facility] Other Evaluation note 02-12-2022 Note Date & Type Note Facility 02-12-2022 Evaluation note Encounter Date Diagnosis Assessment Notes Feb, Acute cough (ICD-10 - R05.1) Patient aware of negative test results. Zpack was prescribed per Dr. Carlos. See TE . [facility] Other Evaluation note 11-06-2021 Note Date & Type Note Facility 11-06-2021 Evaluation note Encounter Date Diagnosis Assessment Notes Oct, Strep throat (ICD-10 - J02.0) [facility] Other History general Narrative - Reported 02-12-2018 Note Date & Type Note Facility 02-12-2018 History general N arrative - Reported Type Medical History Asthma Medical History severe panic/anxiety attacks Medical History seizures Surgical History Tonsillectomy Hospitalization History Seizures 02/2018 [facility] Other Evaluation note Note Date & Type Note Facility Evaluation note No Information [email or web address] Other Summary Purpose Family History No Family History Records FoundNo Family History Records FoundNo Family History Records FoundNo Family History Records FoundNo Family History Records FoundNo Family History Records Found Advance Directives No Advanced Directives Records FoundNo Advanced Directives Records FoundNo Advanced Directives Records FoundNo Advanced Directives Records FoundNo Advanced Directives Records FoundNo Advanced Directives Records Found Hospital Course Note Send Summary: Discharge Summ lisa Providers: Provider RoleProvider Name ReferringKaitlin Sampson AttendingKaitlin Sampson Brett R Note Recipients: Renetta Meza, - [phone] [] Kaitlin Sampson DO Discharge: Summary: Admission Date: .13-Feb-2019 08:58:00 Discharge Date: 14-Feb-2019 Attending Physician at Discharge: Kaitlin Sampson Admission Reason: Video EEG evaluation to rule out epileptic and non-epileptic events prior to driving Final Discharge Diagnoses: Anxiety Asthma Psychogenic nonepileptic seizure Procedures: Video EEG Condition at Discharge: Satisfactory Disposition at Discharge: .Home Vital Signs: T PRBPSpO2 [id number]/6496% Physical Exam: Constitutional: appears well, sitting in bed, NAD Eyes: EOMI, PERRL, anicteric sclera, no discharge ENMT: no nasal discharge or congestion, no oral lesions, MMM Head/Neck: normocephalic, atraumatic Respiratory/Thorax: breathing comfortably, CTA b/l Cardiovascular: RRR, S1 and S2, WWP, cap refill < 2sec, radial (more content not included)... Additional Source Comments INFORMATION SOURCE (unrecogn ized section and content) DATE CREATED AUTHOR 10/02/2017 [facility] DATE CREATED AUTHOR AUTHOR'S ORGANIZ ATION 11/04/2017 [facility] DATE CREATED AUTHOR AUTHOR'S ORGANIZ ATION 11/11/2017 [facility] DATE CREATED AUTHOR AUTHOR'S ORGANIZ ATION 01/29/2019 [employer] DATE CREATED AUTHOR AUTHOR'S ORGANIZ ATION 11/05/2019 [facility] DATE CREATED AUTHOR AUTHOR'S ORGANIZ ATION 06/04/2021 [facility] REASON FOR VISIT (unrecogniz ed section and content) ClinicalClinicalClinical Acu te IllnessCOVID FLU TESTRefillsinvalid Rx for inhalerPOSS INFECTION, LEFT LEG FOR RECORDS PERTAINING TO PATIENTS WHO ARE OR HAVE BEEN ENROLLED IN A CHEMICAL DEPENDENCY/SUBSTANCEABUSE PROGRAM, SOME INFORMATION MAY BE OMITTED. This clinical summary was aggregated from multiple sources. Caution should be exercised in using it in the provision of clinical care. This summary normalizes information from multiple sources, and as a consequence, information in this document may materially change the coding, format and clinical context of patient data. In addition, data may be omitted in some cases. CLINICAL DECISIONS SHOULD BE BASED ON THE PRIMARY CLINICAL RECORDS. [employer] provides no warranty or guarantee of the accuracy or completeness of information in this document.
--- NOTE | 2023-04-25 03:03 | ED.SKABFB1 ---
HPI - Skin/Abscess/Foreign Bdy General Chief complaint: Skin/Abscess/Foreign Body Stated complaint: FACE RASH Time Seen by Provider: 04/25/23 02:26 Source: patient Mode of arrival: walk-in Limitations: no limitations History of Present Illness HPI narrative: This 22-year-old female who was seen here 2 days ago and has a history of a seizure disorder and was found to have hypokalemia presents for evaluation of a rash on her face and swelling of her upper lip and tightness of both lips. The patient states she was given a prescription for potassium and took it for the 1st time yesterday. She has not had any change in her beauty products or detergents. There were no other new medications added but her Lamictal dosing was increased. She is not having any difficulty breathing or swallowing. She has not having any diffuse skin rash. She is not on any Cem inhibitors. There is no nausea or vomiting. She took 50 mg of Benadryl prior to arrival. Related Data Home Medications Medication Instructions Recorded Confirmed lamotrigine 25 mg tablet 25 mg PO DAILY 04/23/23 04/25/23 potassium citrate 10 mEq (1,080 20 meq PO DAILY 04/25/23 04/25/23 mg) tablet,extended release Allergies Allergy/AdvReac Type Severity Reaction Status Date / Time hydrocortisone Allergy Verified 04/23/23 02:55 Review of Systems ROS Status of ROS 10 or more systems reviewed and unremarkable except as noted in history and below [facility] Social History Smoking status: Never smoker Exam Narrative Exam Narrative: Nurses note and vital signs reviewed and patient is not hypoxic. General: The patient appears well and in no apparent distress. Patient is resting comfortably on cart. Skin: Warm, dry, no pallor noted. There is no rash noted.I do not appreciate any hives, erythema, petechiae or purpura on the patient's face or lips. There is no generalized hives or urticarial wheals. Head: Normocephalic, atraumatic Eye: Normal conjunctiva, no drainage, EOMI. PERRL Ears, Nose, Mouth, and Throat: oral mucosa is moist. No swelling of the tongue, uvula or pharyngeal soft tissues. Subjective sensation of swelling noted by the patient but no visible lip swelling. Cardiovascular: Regular Rate and Rhythm Respiratory: Patient is in no distress, no accessory muscle use, lungs are clear to auscultation, no wheezing, rales or rhonchi Back: non-tender, no CVA tenderness bilaterally to percussion. GI: Normal bowel sounds, no tenderness to palpation, no masses appreciated. No rebound, guarding, or rigidity noted. Musculoskeletal: The patient has no evidence of calf tenderness, no pitting edema, symmetrical pulses noted bilaterally Neurological: A&O x4, normal speech Psychiatric: Cooperative Constitutional Vital Signs, click to edit/add: Last Vital Signs Temp 97.8 F 04/25/23 02:28 Pulse 97 H 04/25/23 02:28 Resp 16 04/25/23 02:39 BP 133/86 04/25/23 02:28 Pulse Ox 99 04/25/23 02:28 O2 Del Method Room Air 04/25/23 02:28 Course Vital Signs Vital signs: Vital Signs Temperature 97.8 F 04/25/23 02:28 Pulse Rate 97 H 04/25/23 02:28 Respiratory Rate 16 04/25/23 02:28 Blood Pressure 133/86 04/25/23 02:28 Pulse Oximetry 99 04/25/23 02:28 Oxygen Delivery Method Room Air 04/25/23 02:28 Temperature 97.8 F 04/25/23 02:28 Pulse Rate 97 H 04/25/23 02:28 Respiratory Rate 16 04/25/23 02:39 Blood Pressure 133/86 04/25/23 02:28 Pulse Oximetry 99 04/25/23 02:28 Oxygen Delivery Method Room Air 04/25/23 02:28 MDM - Skin/Abscess/Foreign Bdy MDM Narrative Medical decision making narrative: This 22-year-old female with a history of seizure disorder and who was recently diagnosed with hypokalemia in this emergency department after being seen for his seizure who was given a prescription for potassium and Lamictal dosing was increased presents for evaluation of a rash on her face and swelling of her lips. I do not appreciate any facial rash and the patient's lips appear normal to me with no swelling or cracking. There is no posterior pharyngeal erythema and no swelling of the tongue or uvula. There is no generalized skin rash. She had taken 50 mg of Benadryl prior to arrival so her symptoms may have been worse prior to coming to the emergency department. She has not had any change in her detergents or beauty products. She has no nausea or vomiting. The only new medication she is on his potassium. She was medicated emergency department with Solu-Medrol and given a dose of Pepcid. I am unclear what the etiology of her alleges rash and facial swelling is better at this point it appears safe to discharge her home. I encouraged her to monitor for any swelling or rash after taking additional doses of potassium or the increased dose of Lamictal. Discharge Plan Discharge Chief Complaint: Skin/Abscess/Foreign Body Clinical Impression: Allergic reaction Patient Disposition: Home, Self-Care Time of Disposition Decision: 03:02 Condition: Good Prescriptions / Home Meds: No Action lamotrigine 25 mg tablet 25 mg PO DAILY potassium citrate 10 mEq (1,080 mg) tablet extended release 20 meq PO DAILY Instructions: General Allergic Reaction (ED) Stand Alone Forms: Portal Instructions Referrals: RENETTA CHANEL [Primary Care Provider] - 1 week
[2023-04-25] MEDS: FAMOTIDINE 20 MG TABLET 40 MG PO (03:17)
[2023-04-25] MEDS: METHYLPREDNISOLONE SOD SUCC PF 125 MG/2 ML VIAL IM (03:17)
== END 2023-04-25 03:24 | disposition home or self-care (01) ==
PROVIDERS: Emergency Provider Emergency Medicine; PCP Family Medicine
DX: T78.40XA Allergy, unspecified, initial encounter (principal); G40.909 Epilepsy, unspecified, not intractable, without status epilepticus; Z79.899 Other long term (current) drug therapy
CPT/HCPCS: 96372; 99284; J2930

== ENCOUNTER 2025-01-03 20:52 | Emergency (ER) | payer OTHER, SELFPAY ==
[2025-01-03 21:07] VITALS: BP 156/90; PULSE 90; TEMP 36.7; O2SAT 98; BMI 30.1
--- OUTSIDE RECORDS SUMMARY | 2025-01-03 21:07 | XMS_ITS | Patient Health Record ---
Author Organization [facility] Address [address] [place] [address] Care Team Providers Care Engraver Picture Name Role Phone Terrance Meza Primary Care Provider Kaya Noble Unavailable Allergies Allergen (clinical drug ingredient) Drug/Non Drug Allergy documented on EMR Reaction Allergy Type Onset Date Status hydrocortisone Hydrocortisone rash & itching Drug Allergy Active Potassium rash & itching Drug Allergy Ac tive Reason For Referral No Information Medications Medication SIG (Take, Route, Frequency, Duration) Notes Start Date End Date Status SUMAtriptan Succinate 25 MG as directed Orally Active ProAir HFA 108 (90 Base) MCG/ACT 2 puff(s) inhaled 4 times a day, prn wheeze Active Albuterol Sulfate (2.5 MG/3ML) 0.083% 3 mL by nebulizer every 6hrs as needed Active lamoTRIgine 25 MG 2 tablet Oral twice a day Active Immunizations Vaccine Route Administration Date Status Comme [facility] z2022 FluBLOK Quad PFS (0.5m L Admin) 18 y/o & older Unknown 07/19/2022 Refused Social History Tobacco Use: Social History Observation Description Date Details (start date - stop date) Never Smoker NA - NA Tobacco Control (Standard) Question Answer Notes Tobacco use: Nonsmoker Problems Problem Type SNOMED Code ICD Code Onset Dates Problem Status W/U Status Risk Notes Problem Asthma (294914085) Asthma (J45.909) Active confirmed Problem Seizure (92715839) Seizure (R56.9) Active confirmed Problem Migraine (03095929) Migraine (G43.909) Active confirmed Vital Signs Temperature 97.9 degrees Fahrenheit 08/06/2024 Respiratory Rate 16 /min 08/06/2024 Oximetry 98 08/06/2024 Blood pressure diastolic 79 mm Hg 08/06/2024 Height 63 in 08/06/2024 Blood pressure systolic 120 mm Hg 08/06/2024 Weight 180 lbs 08/06/2024 BMI 31.88 kg/m2 08/06/2024 Encounters Encounter Location Date Provider Diagnosis [id number] [facility] [place] [address] 08/06/2024 Kaya Caballero Bilateral impacted cerumen H61.23 ; Otalgia, right ear H92.01 and Obesity (BMI 30.0-34.9) E66.811 Assessments Encounter Date Diagnosis (ICD Code) Assessment Notes Treatment Notes Treatment Clinical Notes Section Notes 08/06/2024 Otalgia, right ear (ICD-10 - H92.01) Earache: Care Instructions material was published Follow up in the clinic or with PCP as needed 08/06/2024 Bilateral impacted cerumen (ICD-10 - H61.23) Earwax Blockage: Care Instructions material was published Follow up in the clinic or with PCP as needed. Earwax is a natural substance that protects the ear canal. Normally, earwax drains from the ears and does not cause problems. Sometimes earwax builds up in the ear canal and hardens. Earwax blockage (also called cerumen impaction) can cause some loss of hearing and pain. When wax is tightly packed, you will need to have your doctor remove it. Follow-up care is a gauthier part of your treatment and safety. Be sure to make and go to all appointments, and call your doctor if you are having problems. It's also a good idea to know your test results and keep a list of the medicines you take. How can you care for yourself at home?Do not try to remove earwax with cotton swabs, fingers, or other objects. This can make the blockage worse and damage the eardrum.If your doctor recommends that you try to remove earwax at home:Soften and loosen the earwax with warm mineral oil. You also can try hydrogen peroxide mixed with an equal amount of room temperature water. Place 2 drops of the fluid, warmed to body temperature, in the ear two times a day for up to 5 days.Once the wax is loose and soft, all that is usually needed to remove it from the ear canal is a gentle, warm shower. Direct the water into the ear, then tip your head to let the earwax drain out. Use a towel to gently dry your ear.If the warm mineral oil and shower do not work, use an [id number]-knybtzs wax softener. Read and follow all instructions on the label. After using the wax softener, use an ear syringe to gently flush the ear. Make sure the flushing solution is body temperature. Cool or hot fluids in the ear can cause dizziness.When should you call for help?Call your doctor now or seek immediate medical care if: Pus or blood drains from your ear.Your ears are ringing or feel full.You have a loss of hearing.Watch closely for changes in your health, and be sure to contact your doctor if: You have pain or reduced hearing after 1 week of home treatment.You have any new symptoms, such as nausea or balance problems. 08/06/2024 Obesity (BMI 30.0-34.9) (ICD-10 - E66.811) Learning About Healthy Weight material was published Continue healthy eating and exercise. May follow up with [employer] dietitians via a telehealth visit at [email or web address]/service [email or web address]/[email or web address] to help with dietary changes to lower BMI. 08/06/2024 Other Visit summary given to and discussed with patient and/or parent who verbalizes understanding and agreement with plan of care. Thank you for your visit. Please look for the satisfaction survey that you will receive via email. We look forward to receiving your feedback regarding your experience at [facility]. Plan Of Treatment No Information Insurance Providers Payer Name Payer Address Payer Phone Subscriber Number Group Number Insured Name Patient Relationship to Insured Coverage Start Date Coverage End Date [facility] [address] [place] [phone] [id number] Liliana Chavez Self - patient is the insured Medical (General) History Medical History History ICD Code Asthma J45.909 Seizure R56.9 Migraine G43.909 Surgical History Surgery Date(Month/Year) adenoidectomy tonsillectomy Hospitalization History Reason Date(Month/Year) Seizure Observation
--- OUTSIDE RECORDS SUMMARY | 2025-01-03 21:07 | XMS_ITS | Clinical Summary ---
Author Organization [facility] Address [address] [place] [address] Care Team Providers Care Director Sales Training Name Role Phone Mariobarb Terrance Corrigan DO Primary Care Provider [phone] George Ibanez DO Unavailable [phone] Gricelda Burnett NP Unavailable Unavailable Allergies Active Allergy Reactions Criticality Noted Date Comments Hydroxyzine 11/04/2022 Meclizine 06/30/2023 Other Reaction(s): difficulty sleeping , nausea , headache Potassium Chloride Rash Low 06/30/2023 Venlafaxine 04/28/2024 Verapamil 08/01/2024 Patient reported fatigue and chest pain while taking Medications albuterol HFA 90 mcg/act inhaler 5 Active albuterol (2.5 MG/3ML) 0.083% nebulizer solution 5 Active predniSONE (Deltasone) 20 MG tabletIndications :Lower respiratory infection,Mild intermittent asthma with exacerbation (HCC) Take two tablets once a day for 5 days 10 tablet 5 Active lamoTRIgine (LaMICtal) 25 MG tabletIndications :Alteration of awareness Take 2 tablets (50 mg) by mouth in the morning and 2 tablets (50 mg) before bedtime. 120 tablet 3 5 Active SUMAtriptan (Imitrex) 25 MG tabletIndications :Migraine with aura and without status migrainosus, not intractable Take 1 tablet by mouth as needed at the onset of migraine. May repeat dose (1 tablet) once after 2 hours if migraine persists. Take no more than 2 doses in 24 hours. 9 tablet 1 5 Active Active Problems Problem Noted Date Diagnosed Date Cervicalgia 01/01/2024 Balance disorder 01/01/2024 Anxiety 04/25/2020 Overview (11/04/2023): The patient denies any significant anxiety or stress recently but does have a history of this. We have asked her to work on stress management techniques. She is working on this with her family who seems to provide a great support system. Assessment & Plan (09/16/2023 11:58 PM EDT): *06/01/2023 Gricelda Burnett The patient denies any significant anxiety or stress recently but does have a history of this. We have asked her to work on stress management techniques. She is working on this with her family who seems to provide a great support system. Migraine without aura and wi thout status migrainosus, not intractable 04/25/2020 Overview (11/04/2023): Patient's headaches seem more well controlled today. Assessment & Plan (09/16/2023 11:59 PM EDT): *04/02/2023 George Ibanez Patient's headaches seem more well controlled today. Psychogenic nonepileptic seizure 11/10/2017 Overview (11/04/2023): It is my impression that the patient has psychogenic nonepileptic seizures, potentially triggered by stress. MRI of the brain from 10/2017 revealed no epileptogenic focus. Routine EEGs on 10/17/17, 07/05/20, and 04/22/23 were normal. Ambulatory EEG in June 2023: Normal. Per Dr. Boss's visit note from 2017, ambulatory EEG was also normal, and this captured multiple of the patient's typical seizures. The patient has been restarted on lamotrigine and seems to be doing well with this, however, episodes continue to occur quite frequently. PLAN: - I discussed PNES with the patient and family in detail. We discussed potential causes and typical treatment for these - I recommended referral for cognitive behavioral therapy. Patient declined, stating she has been evaluated by psychiatry/psychology multiple times in the past, and they felt she did not need treatment - Continue lamotrigine 50 mg by mouth twice a day for now. We will primarily use for mood stabilization. Side effects discussed. The patient understands to stop this medication right away should she develop a rash. She understands family planning issues associated with this medication and effect on control. - NO DRIVING, tub bathing/swimming alone, or operating heavy machinery. Patient verbalizes understanding.I have asked her to follow with [facility] as she has established with their epilepsy program and I feel that this may be The best course of action to get her proper psychology and psychiatry help long-term Assessment & Plan (09/16/2023 11:56 PM EDT): *06/25/2023 George Ibanez It is my impression that the patient has psychogenic nonepileptic seizures, potentially triggered by stress. MRI of the brain from 10/2017 revealed no epileptogenic focus. Routine EEGs on 10/17/17, 07/05/20, and 04/22/23 were normal. Ambulatory EEG in June 2023: Normal. Per Dr. Boss's visit note from 2018, ambulatory EEG was also normal, and this captured multiple of the patient's typical seizures. The patient has been restarted on lamotrigine and seems to be doing well with this, however, episodes continue to occur quite frequently. PLAN: - I discussed PNES with the patient and family in detail. We discussed potential causes and typical treatment for these - I recommended referral for cognitive behavioral therapy. Patient declined, stating she has been evaluated by psychiatry/psychology multiple times in the past, and they felt she did not need treatment - Continue lamotrigine 50 mg by mouth twice a day for now. We will primarily use for mood stabilization. Side effects discussed. The patient understands to stop this medication right away should she develop a rash. She understands family planning issues associated with this medication and effect on control. - NO DRIVING, tub bathing/swimming alone, or operating heavy machinery. Patient verbalizes understanding.I have asked her to follow with [facility] as she has established with their epilepsy program and I feel that this may be The best course of action to get her proper psychology and psychiatry help long-term Epileptic seizure 11/10/2017 Immunizations Immunization Administration Dates Next Due DTaP, Unspecified 09/17/2006, 3,06/15/2001,04/21,02/09/2001 Hep A, Unspecified 09/17/2006 Hep B, Adolescent or Pediatric 2000 HiB, unspecified 06/10/2002 Hib (HbOC) 04/21/2001 Hib / Hep B 06/15/2001,02/09/2001 IPV 09/17/2006, 2,04/21/2001,02/09 MMRV 09/17/2006,06/10/2002 Meningococcal MCV4P 10/21/2018 Novel [id number], preservative-free 04/26/2009,03/22/2009 Pneumococcal Conjugate PCV 7 06/15/2001 Polio, Unspecified 09/17/2006, 2,04/21/2001,02/09 Td (adult), 5 Lf tetanus tox oid, preservative free, adsorbed 10/05/2013 Tdap 10/05/2013 Family History Medical History Relation Name Comments Hypertension Other Relation Name Status Comments Other Social History Tobacco Use Types Packs/Day Years Used Date Smoking Tobacco: Never Smokeless Tobacco: Never Tobacco Cessation:Counseling Given: Not Answered Alcohol Use Standard Drinks/Week Comments Yes 0 (1 standard drink = 0.6 oz pur e alcohol) AUDIT-C Answer Date Recorded Q1: How often do you have a drink containing alc ohol? Monthly or less 11/04/2022 Q2: How many drinks containi ng alcohol do you have on a typical day when you are drinking? 1 or 2 11/04/2022 Q3: How often do you have si x or more drinks on one occasion? Never 11/04/2022 Comments No Sex and Gender Information Value Date Recorded Sex Assigned at Female 11/04/2022 8:51 AM EDT Legal Sex Female 7:19 PM EDT Gender Identity Female 11/04/2022 8:51 AM EDT Sexual Orientation Not on file Last Filed Vital Signs Vital Sign Reading Time Taken Comments Blood Pressure 132/84 07/29/2024 1:04 PM EDT Pulse 90 07/29/2024 1:04 PM EDT Temperature 36.5 C (97.7 F) 07/20/2024 5:32 PM EDT Respiratory Rate 16 11/04/2023 1:39 PM EDT Oxygen Saturation 98% 07/29/2024 1:04 PM EDT Inhaled Oxygen Concentration - - Weight 82.5 kg (181 lb 12.8 oz) 07/29/2024 1:04 PM EDT Height 157.5 cm (5' 2 ) 02/25/2024 10:5 1 AM EST Body Mass Index 33.25 02/25/2024 10:51 AM EST Plan of Treatment Not on file Insurance [employer] Care Teams Director Sales Training Relationship Specialty Start Date End Date Terrance Meza DO [address] [place] [address] PCP - General Family Medicine 11/04/22 George Ibanez DO [address] [place], [place] [id number] Referring Physician Neurology 03/22/24 Gricelda Burnett NP [address] [place] [id number] Nurse Practitioner Neurology 03/22/24
--- OUTSIDE RECORDS SUMMARY | 2025-01-03 21:07 | XMS_ITS | Encounter Summary ---
Author Organization [facility] Address [address] [place] [address] Care Team Providers Care Resolution Expert Name Role Phone Terrance Meza DO Primary Care Provider [phone] George Ibanez DO Unavailable [phone] ADMINISTRATOR Unavailable Unavailable Encounter Details Date Type Department Care Team (Late st Contact Info) Description 09/02/2024 Orders Only NICOLASA KRYSTLE [address] [place] [address] Gricelda Burnett NP Social History Tobacco Use Types Packs/Day Years Used Date Smoking Tobacco: Never Smokeless Tobacco: Never Alcohol Use Standard Drinks/Week Comments Yes 0 [...] AM EDT Sexual Orientation Not on file documented as of this encounter Plan of Treatment Not on file documented as of this encounter Procedures Procedure Name Priority Date/Time Associated Diagnosis Comments MRI : BRAIN WITH AND WITHOUT CONTRAST Routine 09/01/2024 8:45 AM EDT documented in this encounter Results * MRI : BRAIN WITH AND WITHOUT CONTRAST (09/01/2024 8:45 AM EDT) Anatomical Region Laterality Modality Radiographic Kika ging Gricelda Burnett SUPERVISOR ROAD ADMINISTRATOR IMG XR PROCEDURES Final Result documented in this encounter Visit Diagnoses Not on filedocumented in this encounter Care Teams Resolution Expert Relationship Specialty Start Date End Date Terrance Meza DO [address] [place] [id number] PCP - General Family Medicine 11/04/22 George Ibanez DO [address] [place] [id number] Referring Physician Neurology 03/22/24 Gricelda Burnett NP [address] [place] [address] Nurse Practitioner Neurology 03/22/24 documented as of this encounter
--- OUTSIDE RECORDS SUMMARY | 2025-01-03 21:07 | XMS_ITS | Clinical Summary ---
Author Organization [facility] Address [address] [place] [address] Phone Care Team Providers Care Marketing Database Analyst Name Role Phone Terrance Meza DO Primary Care Provider [phone] Social History Tobacco Use Types Packs/Day Years Used Date Smoking Tobacco: Never Assessed Comments Unknown Sex and Gender Information Value Date Recorded Sex Assigned at Not on file Legal Sex Female 3:19 PM EST Gender Identity Not on file Sexual Orientation Not on file Last Filed Vital Signs Vital Sign Reading Time Taken Comments Blood Pressure - - Pulse - - Temperature - - Respiratory Rate - - Oxygen Saturation - - Inhaled Oxygen Concentration - - Weight 63.7 kg (140 lb 8.7 oz) 02/13/2019 9:51 A M EDT Height 156 cm (5' 1.42 ) 02/13/2019 9:51 AM EDT Body Mass Index 26.2 02/13/2019 9:51 AM EDT Plan of Treatment Not on file Care Teams Marketing Database Analyst Relationship Specialty Start Date End Date Terrance Meza DO PCP - General 03/12/18
--- OUTSIDE RECORDS SUMMARY | 2025-01-03 21:07 | XMS_ITS | Encounter Summary ---
Author Organization [facility] Address [address] [facility], [place] [address] Care Team Providers Care Rfid Analyst Name Role Phone MarioTerrance day Meenu DO Primary Care Provider [phone] George Ibanez DO Unavailable [phone] Gricelda Burnett FIELD SERVICE SUPERVISOR Unavailable Unavailable Encounter Details Date Type Department Care Team (Late st Contact Info) Description 05/16/2023 Abstract [facility] [address] [place] [address] Payton Diaz, MARILEE [address] [place], [place] [id number] Social History Tobacco Use Types Packs/Day Years [...] drinks on one occasion? Never 11/04/2022 Comments Unknown Sex and Gender Information Value Date Recorded Sex Assigned at Female 11/04/2022 8:51 AM EDT Legal Sex Female 7:19 PM EDT Gender Identity Female 11/04/2022 8:51 AM EDT Sexual Orientation Not on file documented as of this encounter Plan of Treatment Not on file documented as of this encounter Visit Diagnoses Not on filedocumented in this encounter Care Teams Rfid Analyst Relationship Specialty Start Date End Date Terrance Meza DO [address] [place] [address] PCP - General Family Medicine 11/04/22 George Ibanez DO [address] [place] [address] Referring Physician Neurology 03/22/24 Gricelda Burnett NP [address] [place] [address] Nurse Practitioner Neurology 03/22/24 documented as of this encounter
--- OUTSIDE RECORDS SUMMARY | 2025-01-03 21:07 | XMS_ITS | Clinical Summary ---
Author Organization [facility] Address [address] [place] [address] Care Team Providers Care Dude Wrangler Name Role Phone Gricelda Burnett APRN Unavailable [phone] Allergies Active Allergy Reactions Criticality Noted Date Comments Hydroxyzine Other: See Comments 11/04/2022 Medications lamoTRIgine (LAMICTAL) 25 mg tablet Take 2 tablets by mouth every 12 hours. 05/27/2023 Active Active Problems Problem Noted Date Diagnosed Date Seizure-like activity 06/24/2023 Social History Tobacco Use Types Packs/Day Years Used Date Smoking Tobacco: Never Passive Smoke Exposure: Never Smokeless Tobacco: Never Tobacco Cessation:Counseling Given: No Alcohol Use Standard Drinks/Week Comments Never 0 (1 standard drink = 0.6 oz pur e alcohol) Area Deprivation Index Answer Date Jabari rded National Score (1-100), lower number is lower ri sk 50 06/23/2023 State Score (1-10), lower number is lower risk 3 06/23/2023 Data from: https://www.neighborhoodatlas.medicine.[facility].edu/. Last address used for calculation [address] 06/23/2023 Comments No Sex and Gender Information Value Date Recorded Sex Assigned at Not on file Legal Sex Female 3:04 PM EST Gender Identity Not on file Sexual Orientation Not on file Last Filed Vital Signs Vital Sign Reading Time Taken Comments Blood Pressure 140/72 06/23/2023 2:56 PM EDT Pulse 62 06/23/2023 2:56 PM EDT Temperature - - Respiratory Rate 20 06/23/2023 2:56 PM EDT Oxygen Saturation 98% 06/23/2023 2:56 PM EDT Inhaled Oxygen Concentration - - Weight 79 kg (174 lb 3.2 oz) 06/23/2023 2:56 PM EDT Height 160 cm (5' 3 ) 06/23/2023 2:56 PM EDT Body Mass Index 30.86 06/23/2023 2:56 PM EDT Plan of Treatment Health Maintenance Due Date Last Done Comments Peds To Adult Transition Ini tial Discussion 2012 Peds To Adult Transition Conchita ual Assessment 2014 HPV Vaccine (1 - 3-dose series) 12/08/2015 Anxiety Screening 2018 Chlamydia Screening (18-24) 2018 Depression Screening 2018 GC (Gonorrhea) Screening (18-24) 2018 HIV Screening 2018 Hepatitis C Screening 2018 Cervical Cancer Screening 2021 DTaP,Tdap,Td Vaccine (8 - Td or Tdap) 10/06/2023 10/05/2013, 10/05/2013, 09/17/2006, Additional history exists Influenza Vaccine (#1) 2024 04/26/2009, 2008 Hepatitis B Vaccine Completed 06/15/2001, 02/09/2001, 2000 [facility] Care Teams Dude Wrangler Relationship Specialty Start Date End Date Gricelda Burnett APRN [address] [place] [address] NANY Referring Team Neurology 06/03/23
--- NOTE | 2025-01-03 21:15 | XR_ITS ---
The [address] [address] Patient Name: TITI ELAM MRN: [id number] date: 2000 Sex: F Assigned Patient Location: ED.MAIN Current Patient Location: ED.MAIN Accession/Order Number: [id number] Exam Date: 01/03/2025 22:09 Report Date: 01/03/2025 22:35 At the request of: CHANDA NIETO MD Procedure: XR ankle LT min 3V LEFT ANKLE - 3 views CLINICAL HISTORY: ankle pain COMPARISON: None FINDINGS: No fracture or dislocation. Talar dome is intact. Soft tissues unremarkable. XR/XR ankle LT min 3V IMPRESSION: NO ACUTE PLAIN FILM FINDINGS. Impression dictated by: Giorgio Forte M.D. 01/03/2025 10:35 PM Dictation Location: [place] [address] Electronically authenticated by: [id number] Y Date: 01/03/2025 22:35
--- NOTE | 2025-01-03 22:54 | ED.LOWEXI1 ---
HPI HPI - Extremity Injury (Lower) General Chief Complaint: Extremity Injury, Lower Stated Complaint: WALK DOWN STAIRS AND HEARD A POP IN LEFT ANKLE Time Seen by Provider: 01/03/25 22:49 Source: patient Mode of arrival: walk-in Limitations: no limitations History of Present Illness HPI Narrative: presents with complaint of pain left ankle. States she was walking down the steps and felt a pop in the ankle. She then later was stepping out of the shower and felt it again and now has continued pain. no swelling. No obvious injury Related Data Home Medications ?Medication ?Instructions ?Recorded ?Confirmed lamotrigine 25 mg tablet 50 mg PO DAILY 04/23/23 01/03/25 sumatriptan succinate 25 mg tablet mg PO 01/03/25 Allergies Allergy/AdvReac Type Severity Reaction Status Date / Time hydrocortisone Allergy Unknown Verified 01/03/25 21:12 potassium chloride AdvReac Mild Rash Verified 01/03/25 21:12 Opioid HPI Opioid Management Most Recent Pain and Opioid Data: Ur Phencyclidine Scrn, (NEGATIVE) Negative 04/23/23, 03:25 Review of Systems ROS Status of ROS 10 or more systems reviewed and unremarkable except as noted in history and below PFSH PFSH Social History Smoking status: Never smoker Little interest or pleasure in doing things: not at all Feeling down, depressed, or hopeless: not at all Exam Constitutional Vital Signs, click to edit/add: Last Vital Signs Temp 98.1 F 01/03/25 21:07 Pulse 90 01/03/25 21:07 Resp 18 01/03/25 21:07 BP 156/90 H 01/03/25 21:07 Pulse Ox 98 01/03/25 21:07 O2 Del Method Room Air 01/03/25 21:07 Common normals: no apparent distress, average body habitus, oriented x3, no limitations, healthy appearing, alert and well nourished Eye Common normals: EOMs intact bilaterally and conjunctivae normal Respiratory Common normals: normal respiratory effort, no retractions, no use of accessory muscles and clear to auscultation bilaterally Cardio Common normals: regular rate, regular rhythm, S1 normal heart sound and S2 normal heart sound Extremity Other: left ankle appears normal. focal tenderness of the achilles. No obvious defect Neuro Common normals: oriented x3, CN's II-XII intact bilaterally, moves all extremities and no focal motor deficits Psych Appearance: grossly normal Course Vital Signs Vital signs: Vital Signs Temperature 98.1 F 01/03/25 21:07 Pulse Rate 90 01/03/25 21:07 Respiratory Rate 18 01/03/25 21:07 Blood Pressure 156/90 H 01/03/25 21:07 Pulse Oximetry 98 01/03/25 21:07 Oxygen Delivery Method Room Air 01/03/25 21:07 Temperature 98.1 F 01/03/25 21:07 Pulse Rate 90 01/03/25 21:07 Respiratory Rate 18 01/03/25 21:07 Blood Pressure 156/90 H 01/03/25 21:07 Pulse Oximetry 98 01/03/25 21:07 Oxygen Delivery Method Room Air 01/03/25 21:07 MDM - Extremity Injury (Lower) MDM Narrative Medical decision making narrative: presents with acute nontraumatic pain of the left achilles. xray of the ankle without acute fracture. Exam with focal tenderness of the achilles. Patient informed of the working diagnosis of acute tendonitis . placed in a cam boot and referred to ortho Discharge Plan Discharge Chief Complaint: Extremity Injury, Lower Clinical Impression: Achilles tendinitis, left leg Patient Disposition: Home, Self-Care Prescriptions / Home Meds: No Action lamotrigine 25 mg tablet 50 mg PO DAILY Patient Comments: 50mg in morning 100mg at night sumatriptan succinate 25 mg tablet PO Print Language: Vietnamese Instructions: Achilles Tendinitis (ED) Additional Instructions: follow up with orthopedics this week Referrals: RENETTA CHANEL [Primary Care Provider, Family Practice] - 1 week
== END 2025-01-03 23:08 | disposition home or self-care (01) ==
PROVIDERS: Emergency Provider Internal Medicine; PCP Family Medicine
DX: M76.62 Achilles tendinitis, left leg (principal)
CPT/HCPCS: 73610; 99283